=== PATIENT | female | born 1985 | race Caucasian/White ===

== ENCOUNTER 2022-11-28 10:06 | Outpatient (CLI) | payer OTHER, SELFPAY | END 2022-11-28 10:07 | disposition home or self-care (01) | LOC: NFLDREF 11-29 11:21 | PROVIDERS: PCP Family Medicine; Referring Provider Family Medicine; Visit Provider Family Medicine | DX: R10.32 Left lower quadrant pain (principal); G89.29 Other chronic pain; R11.0 Nausea; K59.00 Constipation, unspecified; N32.81 Overactive bladder; F41.9 Anxiety disorder, unspecified; F60.3 Borderline personality disorder; F32.A Depression, unspecified | CPT/HCPCS: 87086 ==

== ENCOUNTER 2022-12-12 11:30 | Outpatient (CLI) | payer OTHER, SELFPAY ==
--- OUTSIDE RECORDS SUMMARY | 2022-12-12 22:09 | XMS_ITS | Continuity of Care Document ---
Author Name Unknown Organization [facility] Address [address] [address] [place] [address] Phone Care Team Providers Care Crusher Setter Name Role Phone Hermelindo Daigle MD Unavailable Unavailabl e Allergies, Adverse Reactions, Alerts Substance Reaction Status Criticality No Known Allergies Active No Inform ation Medications Medication Instructions Dosage Effective Dates (start - stop) Status Comments amoxicillin 500 mg-clarithromycin 500 mg-lansoprazole 30 mg combo pack take one pack by oral route 2 times every day - Active FERROUS SULFATE (unknown strength) take 1 tablet by oral route every day Not Available - Active tramadol 50 mg tablet take 1 - 2 tablet by oral route 4 times every day as needed 50 MG - Active hyoscyamine sulfate 0.125 mg tablet take 1 tablet by oral route every 4 hours as needed 0.125 MG - Active ondansetron HCl 4 mg tablet take 2 tablet by oral route 2 times every day 8 MG - Active Procedures Procedure Date Established Level 4 or 25-39 min 2019 Colonoscopy Flex; W/bx 1/mx Ugi Endo; W/bx 1/mx Level Iv-surg Path Gross/micro 20 Gg; Iga, Igd, Igg, Igm, Ea Ferritin Iron Iron Binding Capacity New Level 4 or 45-59 min Advance Directives Directive Yes / No Effective Date File Name No Information Encounters Encounter Description Practice Location Reason(s) For Visit Diagnoses Date Provider Providers Copied on Encounter [facility], [address] [address], [place], [id number], [place] tel:[phone] [facility] No Information 3 Parker Casarez. [address] [facility], [facility] [address], [place], [id number] , [place]. tel: [phone] Established Level 4 or 25-39 min [facility], [address] [address], [place], [id number], [place] tel:[phone] [facility] GI Symptoms or Concerns (chief complaint) Left lower quadrant painNauseaIron deficiency anemia, unspecified iron deficiency anemia typeH. pylori infectionHistory of colon polyps 0 Tan Jesus. [address] [facility], [facility] [address], [place], [id number] , [place]. tel: [phone] Referring Provider: Referral Self. [facility], [address] [address], [place], [id number], [place] tel:[phone] [facility] No Information 0 Nichelle Duncan. [address] [facility], [facility] [address], [place], [id number] , [place]. tel: [phone] [facility], [address] [address], [place], [id number], [place] tel:[phone] [facility] Anemia, unspecifiedNauseaLe ft lower quadrant painHemorrhoids, unspecified hemorrhoid typePolyp of rectumPolyp of cecumBenign neoplasm of cecumGastritis, unspecified, without bleedingHelicobacte r pylori as the cause of diseases classd elswhrAnemia, unspecifiedGastriti s, unspecified, without bleedingBenign neoplasm of cecum 0 Nichelle Duncan. [address] [facility], [facility] [address], [place], [place], [id number] , [place]. tel: [phone] Referring Provider: Referral Self. [facility], [address] [address], [place], [place], [id number], tel:[phone] [facility] No Information Feb- 0 Tan Jesus. [address] [address], [place], [place], [id number] , . [phone] Referring Provider: Referral Self. New Level 4 or 45-59 min [facility], [address] [address], [facility] [place], [id number], tel:[phone] [facility] GI Symptoms or Concerns (chief complaint) Left lower quadrant abdominal painNauseaAnemia, unspecified type Feb- 0 Tan Jesus. [address] [facility], [facility] [address], [place], [place], [id number] , [place]. [phone] Referring Provider: Angel Pérez MD, [address] [place] [address], [address]. tel:[phone] Family History Family Member Type Diagnosis Age At Onset Father Problem (finding) Alive and well Mother Problem (finding) Alive and well Immunizations Vaccine Date Status Comments Influenza, seasonal, injecta ble, preservative free administered Note: [facility] bi-direct ional interface ; Source: Other Registry Novel [id number], all formulations administered Note: [facility] bi-direct ional interface ; Source: Other Registry tetanus toxoid, reduced diphtheria toxoid, and acellular pertussis vaccine, adsorbed administered Note: [facility] b i-directional interface ; Source: Other Registry Influenza, seasonal, injectable administe red Note: [facility] bi- directional interface ; Source: Other Registry tetanus and diphtheria toxoi ds, adsorbed, preservative free, for adult use (2 Lf of tetanus toxoid and 2 Lf of diphtheria toxoid) administered Note: [facility] bi-direct ional interface ; Source: Other Registry measles, mumps and rubella v irus vaccine administered Note: [facility] bi-direct ional interface ; Source: Other Registry Payers Payer name Insurance type Covered green party ID Authoriza tion(s) No Information Social History Type Description Quantity Date Captured Comments Sex Female Smoking Status No Information Chief Complaint And Reason For Visit No Information Reason For Referral Reason For Referral No Information Plan Of Treatment Date Type Action Status Referral Ordered: H. pylori Stool Ag, EIA Appointment date/timeframe: 06/08/2020 ordered Referral Ordered: Celiac: TTG IgA + Total IgA Appointment date/timeframe: -today ordered Referral Ordered: Ferritin Appointment date/timeframe: -today ordered Referral Ordered: Iron/TIBC Appointment date/timeframe: -today ordered Referral Ordered: EGD Appointment date/timeframe: 03/24/2020 ordered Referral Ordered: Colonoscopy Appointment date/timeframe: 03/24/2020 ordered History Of Present Illness Encounter Date Complaint History Of Prese nt Illness GI Symptoms or Concerns The william ent had been scheduled for a followup virtual visit. This was converted to a telephone visit as the patient had not logged in. The patient is a 35-year-old female with a history of depression and anxiety, previous inpatient psych admission for suicidal ideations, also with a history of opioid abuse and overdose in 2016. She was initially evaluated in February for complaints of left lower abdominal pain, also with complaints of nausea and microcytic anemia.Previous evaluation had included a CT of the abdomen and pelvis, a pelvic ultrasound as well as laboratory testing, which was notable for a hemoglobin of 11.7 with an MCV of 78. The patient does provide a history of heavy periods.She underwent further evaluation of her symptoms with iron studies, B12, and folate. This was consistent with iron deficiency anemia. EGD and colonoscopy were performed last month. The EGD appeared to be normal. Biopsies of the duodenum were normal. Gastric biopsies were positiv GI Symptoms or Concerns The william ent was seen for a scheduled new patient virtual visit.This was for left lower abdominal pain and microcytic anemia, also with complaints of nausea.The patient is a 35-year-old female with history of depression and anxiety, status post recent inpatient psych admission for suicidal ideations, also with a history of opioid abuse and overdose in 2016, seen for evaluation of left lower abdominal pain, also with complaints of nausea and microcytic anemia.She says she has had a left lower quadrant pain intermittently for many years; however, it got significantly worse on February 14, which prompted her to go to the ER. There, she had extensive workup with a CT of the abdomen and pelvis, which revealed nonobstructive calculi in both kidneys. A pelvic ultrasound was performed and was normal. Labs were notable for normal LFTs, normal BMP, negative CRP, negative hCG. Her hemoglobin was a little low at 11.7 with an MCV of 78.She denies any blood in the stool. She Functional Status Date Functional Assessmen t No Information Instructions Date Instruction Additional Infor roni 1. complete course o f treatment for h. pylori2. check h. pylori stool antigen 1 month after completing treatment to confirm successful treatment3. f/u with pcp, service line coordinator regarding anemia and left lower pain4. can consider further eval of anemia with small bowel pillcam if does not improve/is not felt due to heavy periods5. consider gastric emptying test for further eval of nausea if does not improve with treatment of h. pylori6. repeat colonoscopy in 5 years for polyp surveillance7. continue otc hemorrhoidal treatments, fiber for hemorrhoids - if remain bothersome recommend follow up with colorectal surgery7. f/u as needed Related to History of colon polyps Colon Cancer Prevention Related to Hemorrhoids, unspecified hemorrhoid type Colon Polyps Related to Hemor rhoids, unspecified hemorrhoid type Hemorrhoids Related to Hemor rhoids, unspecified hemorrhoid type High Fiber Diet Related to Hemor rhoids, unspecified hemorrhoid type 1. EGD with gastric and duodenal biopsies2. colonoscopy3. iron studies, celiac labs4. f/u after tests - consider daily ppi, gastric emptying test for nausea, consideration of musculoskeletal cause for pain Related to Anemia, unspecified type Assessments Type Assessment Date No Information Patient Care Teams Name Effective Dates (start - stop) Status Members No Information
== END 2022-12-12 11:31 | disposition home or self-care (01) ==
LOC: NFLDREF 22:07
PROVIDERS: PCP Family Medicine; Referring Provider Family Medicine; Visit Provider Nurse Practitioner Family
DX: E55.9 Vitamin D deficiency, unspecified (principal); D64.9 Anemia, unspecified; F41.9 Anxiety disorder, unspecified; Z79.899 Other long term (current) drug therapy; F32.A Depression, unspecified
CPT/HCPCS: 80076; 82306; 84443

== ENCOUNTER 2023-01-09 07:50 | Day surgery (SDC) | payer OTHER, SELFPAY ==
[2023-01-09] VITALS (18 sets, daily range): BP systolic 99–130; BP diastolic 62–84; PULSE 47–72; RESP 14–20; TEMP 35.8–36.5; O2SAT 84–100; BMI 36.5
[2023-01-09 08:19] LABS: Ur HCG Qualitative* Negative (Negative)
[2023-01-09] MEDS: LACTATED RINGERS 1000 ML 1,000 ML 100 ML IV (08:34)
[2023-01-09 08:35] LABS: Hemoglobin* 9.7 gm/dL (12.0-16.0)
[2023-01-09] MEDS: SODIUM CHLORIDE 0.9 % (FLUSH) 10 ML SYRINGE IVF (08:35)
--- NOTE | 2023-01-09 08:44 | W.PM.H&PU ---
History & Physical Update History & Physical Update H&P Reviewed and patient assessed: The following changes are noted below H&P Updates: The patient has been taking Tramadol in the last week to treat chronic LLQ pain. She has chronic constipation.
--- NOTE | 2023-01-09 08:46 | PM.PROC ---
Procedure Note Time Seen by Provider: 11:54 Date Seen: 01/09/23 Date of procedure: 01/09/23 Will [facility] bill your pro fee for this procedure?: Yes Procedure: Preoperative diagnosis: 37-year-old with chronic LLQ pain Filshie Clip from a tubal ligation noted in the L abdomen on xray. Undesired fertility Postoperative diagnosis: Same. Extensive adhesions of the descending colon and sigmoid colon to the left abdominal and pelvic sidewall and overlying small bowel. Procedure: Laparoscopic bilateral salpingectomy, Laparoscopic removal of a Filshie clip, extensive lysis of adhesions. Anesthesia: General endotracheal, Local Surgeon: Chaisty Francois MD Medical Receptionist Assistant: Shahana Ortiz MD EBL: 10 mL Urine output: 400 mL clear urine IV Fluid: 1000 ml LR Specimen: Bilateral fallopian tubes to pathology. Findings: On exam under anesthesia: The uterus was anteverted, 8 week size, mobile, without masses or nodularity palpable. Adnexa were without mass or fullness bilaterally. The uterus sounded to 9 cm. On laparoscopy: The uterus and ovaries appear normal. Fallopian tubes show evidence of previous tubal ligation: The tubes showed scarring in the middle of the tube with the area where the Filshie clips had been on the tubes were disconnected. Neither Filshie clip was on either fallopian tube. One Filshie clip was in the pelvis and was removed. There was extensive adhesions the descending and sigmoid colon to the left abdominal sidewall and left pelvic sidewall. No evidence of endometriosis. Adhesions suggestive of history of diverticulitis or colitis. An intraoperative abdominal x-ray was performed to identify where the 2nd Filshie clip was. It was noted to be on the left side of the abdomen approximately level with the umbilicus. This was in an area where the descending colon was adherent to some overlying small bowel and adherent to the left sidewall and these adhesions could not be safely taken down without concern for injury to the colon or blood vessels. So the 2nd Filshie clip was not identified or removed surgically. There were also omental adhesions to the anterior abdomen at the level of the tubal ligation incision. I am suspicious that her chronic pain is secondary to colonic adhesions /diverticulitis/colitis. No gynecologic etiology for her pain was identified. Procedure: Shahana was taken to the operating room where general anesthetic was found to be adequate. She was placed in the dorsal lithotomy position and an exam under anesthesia was performed with findings stated above. She was then prepped and draped in a normal sterile manner. A Araya catheter was then placed. A bivalve speculum was then placed in the vaginal canal to visualize the cervix. The anterior lip of the cervix was grasped with an a long Allis clamp. The cervix was dilated to Hegar 6. Uterus was sounded to Nine cm. A Rami uterine manipulator was then placed. Attention was then turned to performing the laparoscopic portion of the procedure. All incisions were injected with 0.5% Marcaine prior to incision. A vertical 5 mm infraumbilical, incision, was made and a 5 mm trocar placed under direct visualization with the laparoscope. The abdomen was then insufflated with carbon dioxide gas to a pressure of 15 mm of mercury. To bilateral lower quadrant trocars were then placed under direct visualization. Both were placed approximately 3-4 finger breaths medial to the ischial crests. The right trocar was 5 mm the left trocar was 11 mm. A diagnostic laparoscopy was then performed with findings stated above. The left fallopian tube was grasped with a sliding grasper. The left fallopian tube was removed from the broad ligament using the Halo dissecting forceps starting at the fimbriated end of the tube. Sequential pedicles were then formed to the level of the cornua. The tube was then removed at the cornua and removed from the abdomen through the 11 mm port. The right fallopian tube was removed in a similar manner. Excellent hemostasis was noted of all pedicles. The trocars were then removed under direct visualization. The CO2 gas was allowed to escape the infraumbilical port prior to its removal. a Filshie clip was noted to be in the left side of the pelvic cul-de-sac and was removed. The next 45 minutes were used to perform an extensive lysis of adhesions attempting to mobilize the descending and sigmoid colon from the left abdominal sidewall and left pelvis in an attempt to identify and remove the 2nd Filshie clip. As stated above, an x-ray identified the Filshie clip to be on the left side of the abdomen at the level of the umbilicus with in scarring of the colon to the overlying small bowel and abdominal sidewall. Because these adhesions could not be taken down safely the decision was made to complete the surgery. All incisions were reapproximated using 4-0 Monocryl in a running subcuticular manner. Exofin skin adhesive was then applied and adhesive dressings applied over each incision. The uterine manipulator and Araya catheter were removed. The patient tolerated this procedure well. Sponge, lap and instrument counts were correct x2 at the end of the procedure and the patient was taken to the recovery area in stable condition. Total surgical time: 1 hour, 26 minutes. Lysis of adhesions: 45 minutes. Anesthesia: GETA and local Medical Receptionist Assistant: Shahana Ortiz Estimated blood loss (mL): 10 IV fluids (mL): 1,000 Urine output (mL): 400 Pathology: specimen obtained, sent to pathology Condition: stable Disposition: PACU
--- NOTE | 2023-01-09 08:52 | W.ANESCHARGE ---
Anesthesia Charges Start Date/Time Anesthesia Start Date: 01/09/23 Anesthesia Start Time: 07:30 Stop Date/Time Anesthesia Stop Date: 01/09/23
--- NOTE | 2023-01-09 09:18 | W.ANESCHARGE ---
Anesthesia Charges Start Date/Time Anesthesia Start Date: 01/09/23 Anesthesia Start Time: 09:30 Stop Date/Time Anesthesia Stop Date: 01/09/23 Anesthesia Stop Time: 11:42
[2023-01-09] MEDS: BUPIVACAINE 0.5% 30 ML INJECTION (10:10)
--- NOTE | 2023-01-09 10:40 | CRLHL7_ITS ---
For Patients: As a result of the Cures Act, medical imaging exams and procedure reports are released immediately into your electronic medical record. You may view this report before your referring provider. If you have questions, please contact your health care provider. Indication: Intra op - missing instrument Technique: Abdomen 1 view. Comparison: 10/24/2022 Findings: Intraoperative localization left pelvic clip. Impression: Left pelvic clip noted. This was noted by the surgeons in the OR. Dictated by Jason Malone MD @ 01/09/2023 11:18:23 AM (Electronically Signed)
[2023-01-09] MEDS: LACTATED RINGERS 1000 ML 1,000 ML 50 ML IV (11:40)
--- NOTE | 2023-01-09 11:44 | W.ANESCHARGE ---
Anesthesia Charges Start Date/Time Anesthesia Start Date: 01/09/23 Anesthesia Start Time: 09:30 Stop Date/Time Anesthesia Stop Date: 01/09/23 Anesthesia Stop Time: 11:42
[2023-01-09] MEDS: MEPERIDINE 25 MG/ML INJ 12.5 MG IVP (11:53)
[2023-01-09] MEDS: HYDROmorphone 0.5 mg/0.5 ml inj IVP (12:01)
--- NOTE | 2023-01-09 12:25 | P.GYNPRC_ITS ---
Procedure Note Date of procedure: 01/09/23 Procedure Description: PREOPERATIVE DIAGNOSIS: 37-year-old with * chronic LLQ pain * Filshie Clip from a tubal ligation noted in the L abdomen on xray. * Undesired fertility POSTOPERATIVE DIAGNOSIS: Same. Extensive adhesions of the descending colon and sigmoid colon to the left abdominal and pelvic sidewall and overlying small bowel. PROCEDURE: Laparoscopic bilateral salpingectomy, Laparoscopic removal of a Filshie clip, extensive lysis of adhesions. SURGEON: Alessandro. MAINTENANCE TECHNICIAN 3RD SHIFT: Angel. ANESTHESIA: General endotracheal. COMPLICATIONS: None. ESTIMATED BLOOD LOSS: See operative report by Dr. Francois. FINDINGS: See operative report by Dr. Francois. PROCEDURE NOTE: Please see the operative report by Dr. Bradley Gallegos for full details of the procedure. I was asked to assist. I was scrubbed in for the entire procedure until closure of the abdominal incisions. I provided assistance with laparoscopic port placement, lysis of adhesions, visualization and retraction, and with the bilateral salpingectomies from the right side.
[2023-01-09] MEDS: fentaNYL 100 MCG/2 ML inj 50 MCG IVP (12:39)
[2023-01-09] MEDS: ACETAMINOPHEN 500 MG TABLET 1000 MG PO (12:40)
[2023-01-09] MEDS: OXYCODONE 5 MG TABLET PO ×2 (12:40→15:05)
--- NOTE | 2023-01-09 15:12 | SUR.PHASEII ---
pt up to bathroom. Rates pain 7/10 see FLACC scale.
== END 2023-01-09 15:13 | disposition home or self-care (01) ==
PROVIDERS: PCP Family Medicine; Visit Provider Obstetrics & Gynecology
PROC: (CPT 49320; principal; 2023-01-09 08:45)
PROC: (CPT 58661; 2023-01-09 08:45)
DX: Z30.2 Encounter for sterilization (principal); R10.32 Left lower quadrant pain; T83.428A Displacement of other prosthetic devices, implants and grafts of genital tract, initial encounter; K66.0 Peritoneal adhesions (postprocedural) (postinfection)
CPT/HCPCS: 58661; 49329; 00851; 36415; 74018; 81025; 85018; 88302; A9270; J0330; J0665; J1100; J1170; J1885; J2175; J2250; J2405; J2704; J2710; J3010; J7120

== ENCOUNTER 2023-01-18 20:30 | Emergency (ER) | payer OTHER, SELFPAY ==
[2023-01-18 20:49] VITALS: BP 122/78; PULSE 100; RESP 16; TEMP 36.4; O2SAT 100; BMI 36.2
--- NOTE | 2023-01-18 21:16 | CRLHL7_ITS ---
For Patients: As a result of the Century Cures Act, medical imaging exams and procedure reports are released immediately into your electronic medical record. You may view this report before your referring provider. If you have questions, please contact your health care provider. INDICATION: Left lower quadrant pain status post hysterectomy 1-1/2 weeks ago. COMPARISON: Plain film of the abdomen from 01/09/2023. CT of the abdomen and pelvis with contrast from 12/30/2020. TECHNIQUE: CT examination of the abdomen and pelvis was performed with the uneventful intravenous administration of 98 cc of Isovue 370 while 3 mm thick axial sections were obtained from the lung bases through the pubic symphysis. Oral contrast was not administered. Please note that all CT scans at this facility use dose modulation, iterative reconstruction, and/or weight-based dosing when appropriate to reduce radiation dose to as low as reasonably achievable. FINDINGS: In the abdomen, the liver, spleen, pancreas, and adrenals are normal in appearance. The kidneys are normal in appearance. The gallbladder is normal in appearance. The abdominal aorta is normal in caliber with no sign of dilatation. There is no sign of retroperitoneal mass or adenopathy. The stomach, loops of small bowel, and colon in the abdomen are normal in appearance. The moderate-sized right inferior periumbilical hernia containing only fat has slightly increased in size. In the pelvis, the appendix is normal in appearance with no sign of inflammatory process. The loops of small bowel, colon, and rectum in the pelvis are normal in appearance. The uterus is still present, despite the history of hysterectomy. It is mildly enlarged, measuring 9.2 x 6.4 x 6.8 centimeters. There is no sign of any mass. The right ovary has a peripherally enhancing slightly irregular cyst measuring 2.3 x 1.4 centimeters, probably an involuting dominant follicular cyst. The left ovary is normal in appearance. The urinary bladder is normal in appearance. There is no sign of pelvic or inguinal mass or adenopathy. There is no sign of free air or free fluid in the abdomen or pelvis. The lung bases are clear. The osseous structures are normal in appearance for the patient`s age. IMPRESSION: Nothing seen to explain the patient`s left-sided pain. No sign of left urinary system obstruction or calculus. No sign of diverticulosis or diverticulitis. Normal appearance of the left ovary. CT of the pelvis shows mild enlargement of the otherwise normal-appearing uterus. This does not correlate with the clinical history of hysterectomy. Collapsing dominant follicular cyst in the right ovary measuring 2.3 x 1.4 centimeters. Normal appearance of the left ovary. Slight increase in size of moderate-sized right inferior periumbilical hernia. Normal CT of the abdomen with contrast. Please note that all CT scans at this facility use dose modulation, iterative reconstruction, and/or weight-based dosing when appropriate to reduce radiation dose to as low as reasonably achievable. Dictated by Gunner Arambula MD @ 01/18/2023 11:40:14 PM (Electronically Signed)
--- NOTE | 2023-01-18 21:17 | ED_ITS ---
<Statement entered by Oly Rubalcava MD - 09/04/23 08:06> This documentation has been reviewed and approved. HPI - Abdominal Pain General Chief Complaint: Abdominal Pain Stated Complaint: abdominal pain Time Seen by Provider: 01/18/23 20:58 History of Present Illness HPI narrative: This 37-year-old female comes in reporting pain in her left lower quadrant. She did have a hysterectomy done a week and half ago. This pain is come up in the past few days and is rather constant. She does take tramadol over a long period of time and understands that this causes constipation. She did quit this medicine earlier this week and has had better bowel movements now but complains of pain. She does have a history of abdominal pain and was hoping that this hysterectomy would relieve her symptoms but that has not happened. She does describe similar pain a couple years ago where she had studies done in was given 2 antibiotics twice a day for a week or so to treat an infection. I asked her if it was diverticulitis and she thought it might have been that but she was not sure. She does not report any fevers or blood in the toilet. She does have nausea symptoms. She states that the pain was worse with going over the little bumps on the way here. Related Data Home Medications Medication Instructions Recorded Confirmed guar gum 1 gram tablet g PO PRN 05/03/23 06/05/23 Previous Rx's Medication Instructions Recorded simethicone 125 mg capsule (Gas 125 mg PO TID-QID PRN abdominal 01/17/23 Relief (simethicone)) distention #60 caps iron,carbonyl 65 mg-vitamin C 125 1 tab PO BID #180 tabs 03/02/23 mg tablet,delayed release (Vitron-C) pantoprazole 20 mg tablet,delayed 20 mg PO DAILY #90 tabs 04/12/23 release (Protonix) tramadol 50 mg tablet 50 mg PO BID PRN pain #30 tabs 04/12/23 tolterodine 2 mg capsule,extended 2 mg PO Q24H #90 caps 05/03/23 release 24 hr (Detrol LA) prednisone 20 mg tablet 40 mg (2 x 20 mg) PO QDAY #10 tabs 06/05/23 Allergies Allergy/AdvReac Type Severity Reaction Status Date / Time No Known Drug Allergies Allergy Verified 12/19/23 12:19 Review of Systems Status of ROS Reports: 10 or more systems reviewed and unremarkable except as noted in History and below Narrative Constitutional: No fevers, no weight gain or loss. Eyes: No discharge. No vision changes. HENT: No congestion, no sore throat, no ear pain. Cardiovascular: No chest pain, no palpitations. Respiratory: No shortness of breath, no wheezes, no cough. Abdominal pain as described above. Gastrointestinal: No vomiting, no diarrhea. Genitourinary: No dysuria, no hematuria. Musculoskeletal: Normal range of motion. Skin: No rashes, no pruritis. Neurological: No dizziness, weakness, sensory change, speech change. Endo/Heme/Allergies: No bruising or bleeding. No polydipsia. Pysch: no suicidality, no anxiety, no insomnia. All other systems reviewed and are negative. [facility] Medical History (Updated 06/05/23 @ 12:50 by Sofia Godfrey MD) Sinus congestion ?R09.81 - Nasal congestion (ICD-10) Anemia ?D64.9 - Anemia, unspecified (ICD-10) Post-traumatic stress ?F43.10 - Post-traumatic stress disorder, unspecified (ICD-10) History of intentional self-harm Passive suicidal ideations ?R45.851 - Suicidal ideations (ICD-10) Vitamin D deficiency ?E55.9 - Vitamin D deficiency, unspecified (ICD-10) Medication management ?Z79.899 - Other tank terminal gauger (current) drug therapy (ICD-10) Chronic left lower quadrant pain ?R10.32 - Left lower quadrant pain (ICD-10) ?G89.29 - Other chronic pain (ICD-10) Adverse effect of vaccine ?T50.Z95A - Adverse effect of other vaccines and biological substances, initial encounter (ICD-10) H/O gestational diabetes mellitus, not currently ?Z86.32 - Personal history of gestational diabetes (ICD-10) Vaginal delivery ?O80 - Encounter for full-term uncomplicated delivery (ICD-10) Labyrinthitis ?H83.09 - Labyrinthitis, unspecified ear (ICD-10) History of suicide attempt (2017) ?Z91.51 - Personal history of suicidal behavior (ICD-10) Surgical History (Updated 01/09/23 @ 08:56 by Chasity Francois MD) History of bilateral ligation of fallopian tubes ?Z98.51 - Tubal ligation status (ICD-10) Family History (Updated 11/01/22 @ 16:24 by Chasity Francois MD) Maternal Grandmother Cardiovascular disease Diabetes Mother Diabetes Social History (Updated 11/01/22 @ 16:25 by Chasity Francois MD) Narrative: Cis-gender, heterosexual woman Relationship status: . 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 Illicit/recreational drugs: No Safety concerns at home or work: No Dietary restriction(s): No Exercise: No. Smoking Status: Never smoker How often do you have a drink containing alcohol: never AUDIT-C Alcohol total score: 0 Non-prescribed substance use: denies use Caffeine: Yes (1 cup coffee) Little interest or pleasure in doing things: nearly every day Feeling down, depressed, or hopeless: more than half the days Are you using contraception or practicing any form of control: No Exam Narrative: Exam Narrative: Constitutional: Well-developed, well-nourished, no acute distress. HEENT: Normocephalic, atraumatic. Neck: Normal range of motion. Nontender. Supple. Heart: Regular. No murmurs. Normal rate. Intact distal pulses. Lungs: Clear to auscultation. No chest discomfort. No wheezes, rhonchi, or rales. Abdomen: Normal bowel sounds. Tenderness in the left lower quadrant. Mild rebound tenderness is present. Genitalia: Deferred. Back: No midline tenderness. Normal range of motion. Extremities: Normal range of motion. No injury. Skin: Intact. No rash. Warm. No erythema or pallor. Neurologic: No altered sensation. No weakness. Alert and oriented. Psychiatric: No suicidality. No anxiety or depression. No insomnia. Nursing notes and vitals signs are reviewed. Const: Vital Signs, click to edit/add: Vital Signs - 24 hr 01/18/23 20:49 01/18/23 22:18 01/18/23 22:19 Temperature 97.6 F Pulse Rate 63 Pulse Rate [Left P ulse Oximeter] 100 61 Respiratory Rate 16 16 Blood Pressure 136/85 Blood Pressure [Le ft Upper Arm] 122/78 138/85 Pulse Oximetry 100 100 100 Oxygen Delivery Me thod Room Air Room Air 01/18/23 22:32 01/18/23 23:03 Temperature Pulse Rate 54 L 55 L Pulse Rate [Left P ulse Oximeter] Respiratory Rate 16 Blood Pressure 115/75 107/64 Blood Pressure [Le ft Upper Arm] Pulse Oximetry 100 100 Oxygen Delivery Me thod Course Vital Signs Vital signs: Initial Vital Signs Temperature 97.6 F 01/18/23 20:49 Temperature Source Temporal Artery Scan 01/18/23 20:49 Pulse Rate 100 01/18/23 20:49 Respiratory Rate 16 01/18/23 20:49 Blood Pressure 122/78 01/18/23 20:49 Blood Pressure Mean 92 01/18/23 20:49 Blood Pressure Position Sitting 01/18/23 20:49 Pulse Oximetry 100 01/18/23 20:49 Oxygen Delivery Method Room Air 01/18/23 20:49 Vital Signs Temperature 97.6 F 01/18/23 20:49 Pulse Rate 100 01/18/23 20:49 Respiratory Rate 16 01/18/23 20:49 Blood Pressure 122/78 01/18/23 20:49 Pulse Oximetry 100 01/18/23 20:49 Oxygen Delivery Method Room Air 01/18/23 20:49 Temperature 97.6 F 01/18/23 20:49 Pulse Rate 57 L 01/18/23 23:32 Respiratory Rate 16 01/18/23 23:03 Blood Pressure 110/61 01/18/23 23:32 Pulse Oximetry 99 01/18/23 23:32 Oxygen Delivery Method Room Air 01/18/23 22:18 MDM - Abdominal Pain MDM Narrative Medical decision making narrative: This patient comes in reporting abdominal pain mostly on the left side. She does arrive with normal vital signs. An IV was established and CT imaging of the abdomen and pelvis is acquired. The patient did not have a hysterectomy but rather a salpingectomy and a surgical clip was removed. There was also evidence of adhesions in the surgical report. This most likely explains the patient's pain as the rest of the CT scan is not showing a cause for her pain. She does have a hernia that is slightly enlarged but is not complicated. The patient did receive an IV dose of Dilaudid 0.5 mg and she states that her pain seemed worse after getting this medicine. She then received Toradol 30 mg and that brought sufficient relief of her symptoms. She is okay to be discharged home and received prescriptions for Toradol, Zofran, and Protonix. Lab Data Labs: Lab Results 01/18/23 Range/Units 21:30 WBC 10.89 (4.50-11.00) K/uL RBC 4.66 (4.00-5.20) m/uL Hgb 10.6 L (12.0-16.0) gm/dL Hct 34.8 (33.0-51.0) % MCV 75 L (80-100) fL MCH 23 L (26-34) pg MCHC 31 L (32-36) gm/dL RDW Coeff of Michelle 15.3 (11.5-15.5) % Plt Count 434 (140-440) K/uL Neut % (Auto) 60.0 (42.0-72.0) % Lymph % (Auto) 30.9 (20-44) % Terrell % (Auto) 5.7 (0.0-11.0) % Eos % (Auto) 2.7 (0.0-7.0) % Baso % (Auto) 0.5 (0.0-3.0) % Neut # (Auto) 6.54 (1.7-7.0) K/uL Lymph # (Auto) 3.37 H (0.90-2.90) K/uL Terrell # (Auto) 0.60 (0.00-0.90) K/UL Eos # (Auto) 0.29 (0.00-0.50) K/uL Baso # (Auto) 0.05 (0.00-0.30) K/uL Abs Immat Gran (auto) 0.02 (0.00-0.30) K/uL Imm/Tot Granulo (auto) 0.2 % Sodium 139 (135-149) mmol/L Potassium 3.9 (3.6-5.1) mmol/L Chloride 107 (96-114) mmol/L Carbon Dioxide 25 (20-32) mmol/L BUN 20 (5-24) mg/dL Creatinine 0.7 (0.5-1.5) mg/dL Estimated Creat Clear 85.34 Estimated GFR 113 ml/min Glucose 100 (60-115) mg/dL Calcium 9.3 (8.4-10.6) mg/dL Imaging Data CT scan - abdomen: Radiologist's impression: Nothing seen to explain the patient`s left-sided pain. No sign of left urinary system obstruction or calculus. No sign of diverticulosis or diverticulitis. Normal appearance of the left ovary. CT of the pelvis shows mild enlargement of the otherwise normal-appearing uterus. This does not correlate with the clinical history of hysterectomy. Collapsing dominant follicular cyst in the right ovary measuring 2.3 x 1.4 centimeters. Normal appearance of the left ovary. Slight increase in size of moderate-sized right inferior periumbilical hernia. Normal CT of the abdomen with contrast. Discharge Plan Discharge Clinical Impression: Abdominal pain Patient Disposition: Home, Self-Care Condition: Stable Additional Instructions: Take medications as needed and indicated. Follow up with MD or return if worsening. Prescriptions: No Action Vitron-C 65 mg iron- 125 mg tablet,delayed release (DR/EC) 1 tab PO BID Qty: 180 1RF pantoprazole [Protonix] 20 mg tablet,delayed release (DR/EC) 20 mg PO DAILY Qty: 90 1RF tramadol 50 mg tablet 50 mg PO BID PRN (Reason: pain) Qty: 30 1RF guar gum 1 gram tablet PO PRN tolterodine [Detrol LA] 2 mg capsule,extended release 24hr 2 mg PO Q24H Qty: 90 3RF simethicone [Gas Relief (simethicone)] 125 mg capsule 125 mg PO TID-QID PRN (Reason: abdominal distention) Qty: 60 0RF prednisone 20 mg tablet 40 mg PO QDAY Qty: 10 0RF Follow Up/Referrals: Angel Pérez MD [Primary Care Provider] - Stand Alone Forms: [employer] Info Instructions
[2023-01-18 21:38] LABS: Basophils Absolute Auto 0.05 K/uL (0.00-0.30); Basophils Percent Auto 0.5 % (0.0-3.0); Eosinophils Absolute Auto 0.29 K/uL (0.00-0.50); Eosinophils Percent Auto 2.7 % (0.0-7.0); Hematocrit 34.8 % (33.0-51.0); Hemoglobin* 10.6 gm/dL (12.0-16.0); Immature Granulocytes Abs Auto 0.02 K/uL (0.00-0.30); Immature Granulocytes Pct Auto 0.2 %; Lymphocytes Absolute Auto 3.37 K/uL (0.90-2.90); Lymphocytes Percent Auto 30.9 % (20-44); Mean Corpuscular HGB Conc 31 gm/dL (32-36); Mean Corpuscular Hemoglobin 23 pg (26-34); Mean Corpuscular Volume 75 fL (80-100); Monocytes Percent Auto 5.7 % (0.0-11.0); Neutrophils Absolute Auto 6.54 K/uL (1.7-7.0); Platelet Count* 434 K/uL (140-440); RDW Coefficient of Variation % 15.3 % (11.5-15.5); Red Blood Count 4.66 m/uL (4.00-5.20); White Blood Count* 10.89 K/uL (4.50-11.00)
[2023-01-18] MEDS: HYDROmorphone 0.5 mg/0.5 ml inj IVP (21:38)
[2023-01-18] MEDS: ONDANSETRON 2 MG/ML inj 4 MG IVP (21:38)
[2023-01-18] MEDS: 0.9 % SODIUM CHLORIDE 500 ML 500 ML IV (21:49)
[2023-01-18 21:54] LABS: Slide Review Reflex No
[2023-01-18 21:56] LABS: Chloride* 107 mmol/L (96-114); Potassium* 3.9 mmol/L (3.6-5.1); Sodium* 139 mmol/L (135-149)
[2023-01-18 21:58] LABS: Creatinine* 0.7 mg/dL (0.5-1.5)
[2023-01-18] MEDS: KETOROLAC 30 MG/ML inj IVP (21:58)
[2023-01-18 21:59] LABS: Blood Urea Nitrogen* 20 mg/dL (5-24); Calcium* 9.3 mg/dL (8.4-10.6); Carbon Dioxide* 25 mmol/L (20-32); Est. Creatinine Clearance* 85.34; Estimated Glomerular Filt Rate 113 ml/min; Glucose* 100 mg/dL (60-115)
[2023-01-18 22:18] VITALS: BP 138/85; PULSE 61; RESP 16; O2SAT 100
[2023-01-18 22:19] VITALS: BP 136/85; PULSE 63; O2SAT 100
[2023-01-18 22:32] VITALS: BP 115/75; PULSE 54; O2SAT 100
[2023-01-18 23:03] VITALS: BP 107/64; PULSE 55; RESP 16; O2SAT 100
[2023-01-18 23:32] VITALS: BP 110/61; PULSE 57; O2SAT 99
== END 2023-01-19 00:11 | disposition home or self-care (01) ==
PROVIDERS: Emergency Provider Emergency Medicine Emergency Medical Services; PCP Family Medicine
DX: R10.9 Unspecified abdominal pain (principal)
CPT/HCPCS: 36415; 74177; 80048; 85025; 95992; 96374; 96375; 99281; 99284; 99285; J1170; J1885; J2405; J7120; Q9967

== ENCOUNTER 2023-03-02 09:52 | Outpatient (CLI) | payer OTHER, SELFPAY | END 2023-03-02 09:53 | disposition home or self-care (01) | PROVIDERS: PCP Family Medicine; Visit Provider Family Medicine | DX: R10.32 Left lower quadrant pain (principal); D64.9 Anemia, unspecified; R11.0 Nausea; R42 Dizziness and giddiness; G89.29 Other chronic pain | CPT/HCPCS: 82306; 82607; 82728; 83540 ==

== ENCOUNTER 2023-04-12 09:32 | Outpatient (CLI) | payer OTHER, SELFPAY | END 2023-04-12 09:33 | disposition home or self-care (01) | PROVIDERS: PCP Family Medicine; Visit Provider Family Medicine | DX: D64.9 Anemia, unspecified (principal) | CPT/HCPCS: 82728; 83540; 85045 ==

== ENCOUNTER 2024-03-13 16:20 | Outpatient (CLI) | payer OTHER, SELFPAY ==
--- OUTSIDE RECORDS SUMMARY | 2024-03-13 16:27 | XMS_ITS | Referral Summary ---
Author Organization [place] Address [address] [facility] [place] [address] Care Team Providers Care Lastex Operator Name Role Phone Angel Pérez MD Primary Care Provider [phone] Allergies No known active allergies Medications Medication Sig Dispensed Refills Start Date End Date Status MELATONIN POIndications:Insom laura Take 5-10 mg by mouth nightly as needed Active hypromellose (ARTIFICIAL TEARS) 0.5 % SOLN ophthalmic solution Place 1 drop into both eyes 4 times daily as needed for dry eyes Active acetaminophen (TYLENOL) 325 MG tabletIndications:C hronic midline low back pain without sciatica Take 2 tablets (650 mg) by mouth every 4 hours as needed for mild pain 30 tablet 1 04/27/2017 Active Additional Information Patient not taking.Reported on 04/29/2022 hydrOXYzine (ATARAX) 25 MG tabletIndications:R ecurrent major depressive disorder, in partial remission (H24),Borderline personality disorder Take 2 tablets (50 mg) by mouth every 4 hours as needed for anxiety 90 tablet 1 04/27/2017 Active Additional Information Patient not taking.Reported on 04/29/2022 divalproex (DEPAKOTE) 500 MG EC tabletIndications:m ood stabilizer Take 1 tablet (500 mg) by mouth 2 times daily 60 tablet 1 04/27/2017 Active Additional Information Patient not taking.Reported on 04/29/2022 gabapentin (NEURONTIN) 800 MG tabletIndications:B orderline personality disorder,Recurrent major depressive disorder, in partial remission (H24),ABRAHAM (generalized anxiety disorder) Take 1 tablet (800 mg) by mouth 3 times daily 90 tablet 1 04/27/2017 Active Additional Information Patient not taking.Reported on 04/29/2022 FLUoxetine (PROZAC) 20 MG capsuleIndications: Borderline personality disorder,ABRAHAM (generalized anxiety disorder),Recurrent major depressive disorder, in partial remission (H24) Take 3 capsules (60 mg) by mouth daily 90 capsule 1 04/27/2017 Active Additional Information Patient not taking.Reported on 04/29/2022 LORazepam (ATIVAN) 0.5 MG tablet Take 1 tablet (0.5 mg) by mouth every 6 hours as needed for anxiety 2 tablet 09/20/2022 Active Active Problems Problem Noted Date Diagnosed Date Borderline personality disorder 04/27/2017 Recurrent major depressive d isorder, in partial remission (H24) 04/27/2017 Chronic midline low back pain without sciatica 1 06/27/2016 ABRAHAM (generalized anxiety disorder) 04/27/2017 Unspecified mood (affective) disorder (H24) 11/2016 Overview: Traits of rapid cycling bipolar disorder, however equivocal at this time Opiate dependence 04/23/2017 Overview: Uses Tramadol Suicide attempt 04/22/2017 MENTAL HEALTH 10/26/2016 Social History Tobacco Use Types Packs/Day Years Used Date Smoking Tobacco: Never Smokeless Tobacco: Never Tobacco Cessation:Counseling Given: Not Answered Alcohol Use Standard Drinks/Week Comments Yes 0 (1 standard drink = 0.6 oz pur e alcohol) Adolescent Education Answer Date Record ed Getting School Help Needed Not on file 04/01 Sex and Gender Information Value Date Recorded Sex Assigned at Not on file Gender Identity Not on file Sexual Orientation Not on file Last Filed Vital Signs Vital Sign Reading Time Taken Comments Blood Pressure 138/80 09/20/2022 12:30 AM CDT Pulse 82 09/20/2022 12:30 AM CDT Temperature 36.9 ??C (98.5 ??F) 09/20/2022 12:30 AM C DT Respiratory Rate 20 09/20/2022 12:30 AM CDT Oxygen Saturation 100% 09/20/2022 12:30 AM CDT Inhaled Oxygen Concentration - - Weight 103.4 kg (228 lb) 04/29/2022 1:16 PM AIR TUCKER Height 157.5 cm (5' 2) 04/22/2017 7:38 PM AIR TUCKER Body Mass Index 41.7 04/22/2017 7:38 PM AIR TUCKER Plan of Treatment Not on file Procedures Procedure Name Priority Date/Time Associated Diagnosis Comments COMPREHENSIVE METABOLIC PANEL STAT 09/20/2022 2:11 AM CDT LIPID PROFILE Routine 10/27/2016 8:44 AM CDT from Last 3 Months or Most Recently Relevant to Health Maintenance Results * (ABNORMAL) Comprehensive metabolic panel (09/20/2022 2:11 AM CDT) Sodium 138 136 - 145 mmol/L 09/20/2022 3:01 AM CDT [facility] Potassium 3.7 3.4 - 5.3 mmol/L 09/20/2022 3:01 AM CDT [facility] Chloride 103 98 - 107 mmol/L 09/20/2022 3:01 AM CDT [facility] Carbon Dioxide (CO2) 23 22 - 29 mmol/L 09/20/2022 3:01 AM CDT [facility] Anion Gap 12 7 - 15 mmol/L 09/20/2022 3:01 AM CDT [facility] Urea Nitrogen 10.1 6.0 - 20.0 mg/dL 09/20/2022 3:01 AM CDT [facility] Creatinine 0.56 0.51 - 0.95 mg/dL 09/20/2022 3:01 AM CDT [facility] Calcium 8.9 8.6 - 10.0 mg/dL 09/20/2022 3:01 AM CDT LABORATORY Glucose 101(H) 70 - 99 mg/dL 09/20/2022 3:01 AM CDT [facility] Alkaline Phosphatase 80 35 - 104 U/L 09/20/2022 3:01 AM CDT [facility] AST 26 10 - 35 U/L 09/20/2022 3:01 AM CDT [facility] ALT 32 10 - 35 U/L 09/20/2022 3:01 AM CDT [facility] Protein Total 7.0 6.4 - 8.3 g/dL 09/20/2022 3:01 AM CDT [facility] Albumin 4.3 3.5 - 5.2 g/dL 09/20/2022 3:01 AM CDT [facility] Bilirubin Total <0.2 <=1.2 mg/dL 09/20/2022 3:01 AM CDT [facility] GFR Estimate >90 >60 mL/min/1.7 3m2 09/20/2022 3:01 AM CDT [facility] Comment:eGFR calculated us2020 CKD-EPI equation. Blood BLOOD SPECIMEN / Unknown Venipuncture / Unknown 09/20/2022 2:11 AM CDT 09/20/2022 2:17 AM CDT Zurdo Horton MD LAB - BLO OD ORDERABLES LABORATORY [facility] Acute Care Lab [address] Lab (1st floor, no room number) [place] [address], [facility] [[email or web address]] [phone] * (ABNORMAL) Lipid panel (10/27/2016 8:44 AM CDT) Cholesterol 163 <200 mg/dL [facility] Triglycerides 118 <150 mg/dL [facility] HDL Cholesterol 35(L) >49 mg/dL [facility] LDL Cholesterol Calculated 104(H) <100 mg/dL [facility] Comment: Above desirable: ??100-129 mg/dl Borderline High: ??130-159 mg/dL High: ? 160-189 mg/dL Very high: ? >189 mg/dl Non HDL Cholesterol 128 <130 mg/dL [facility] Blood specimen (specimen) 10/27/2016 8:44 AM CDT 10/27/2016 8:54 AM CDT Augustina Ward APRN TIRE SERVICE TECHNICIAN LAB - BLOOD O RDERABLES [facility] [address] [place] [address] from Last 3 Months or Most Recently Relevant to Health Maintenance Advance Directives For more information, please contact: [phone] * Full Code (Latest Code Status on File) Date Activated Date Inactivated Comments 04/22/2017 9:01 PM 04/30/2017 5:05 PM * Full Code Date Activated Date Inactivated Comments 10/26/2016 7:28 PM 11/02/2016 10:57 PM Care Teams Lastex Operator Relationship Specialty Start Date End Date Angel Pérez MD [facility] [address] [place] [address] PCP - General Family Medicine 09/20/22
--- OUTSIDE RECORDS SUMMARY | 2024-03-13 16:27 | XMS_ITS | Encounter Summary ---
Author Organization [place] Address [address] [place] [address] Care Team Providers Care On Awake Counselor Name Role Phone Paty Perera Primary Care Provider [phone] Angel Pérez MD Primary Care Provider [phone] Reason for Visit * Reason Onset Date Comments MH/CD Inpatient 04/22/2017 Encounter Details Date Type Department Care Team ([facility] st Contact Info) Description 04/22/2017 Telephone [facility] Behavioral Health Intake [address] [place] [address] [phone] Generic, Behavioral Intake, MH/CD Inpatient Social History Tobacco Use Types Packs/Day Years Used Date Smoking Tobacco: Never Assessed Sex and Gender Information Value Date Recorded Sex Assigned at Not on file Gender Identity Not on file Sexual Orientation Not on file documented as of this encounter Miscellaneous Notes * Telephone Encounter - Noel Singh - 04/22/2017 5:[address]STER S: [facility] ED called to place a 32 y/o female for inpatient mental health treatment. B: Pt was brought to the ED due to a suicide attempt via overdose on tramadol. Pt had a similar OD on tramadol last October. Pt continues to endorse SI reporting that if she goes home she will take pillsor do something else irrational. Pt is prescribed tramadol, fluoxetine, hydroxyzine, Prozac, and Depakote. Pt has been medically cleared. Pt is voluntary but Dr. Farley indicated that he would be willing to place the patient on a hold. A: Refer to inpatient unit for mental health treatment. R: Admit to . under Dr. Jones. Approved by Dr. Britton. E TESTER documented in this encounter Plan of Treatment Not on file documented as of this encounter Visit Diagnoses Not on filedocumented in this encounter Care Teams On Awake Counselor Relationship Specialty Start Date End Date Paty Perera [address] [address] [place] [address] PCP - General Nurse Practitioner 10/26/16 09/19/22 Angel Pérez MD [address] [address] PCP - General Family Medicine 09/20/22 documented as of this encounter
--- OUTSIDE RECORDS SUMMARY | 2024-03-13 16:27 | XMS_ITS | Clinical Summary ---
Author Organization [place] Address [address] [facility] [place] [address] Care Team Providers Care [employer] Maintenance Worker Name Role Phone Angel Pérez MD Primary Care Provider [phone] Allergies No known active allergies Medications Medication [...] 103.4 kg (228 lb) 04/29/2022 1:16 PM ABRASIVE WATER JET CUTTER OPERATOR Height 157.5 cm (5' 2) 04/22/2017 7:38 PM ABRASIVE WATER JET CUTTER OPERATOR Body Mass Index 41.7 04/22/2017 7:38 PM ABRASIVE WATER JET CUTTER OPERATOR Plan of Treatment Health Maintenance Due Date Last Done Comments ADVANCE CARE PLANNING 1983 ANNUAL REVIEW OF HM ORDERS 1983 MAMMO SCREENING 1983 YEARLY PREVENTIVE VISIT 1983 HIV SCREENING 1998 HEPATITIS C SCREENING 2001 HEPATITIS A IMMUNIZATION (1 of 2 - Risk 2-dose series) 2002 HEPATITIS B IMMUNIZATION (1 of 3 - 19+ 3-dose series) 2002 PAP 02/06/2004 DTAP/TDAP/TD IMMUNIZATION (3 - Td or Tdap) 02/06/2017 02/06/2007, 06/30/1998 LIPID 2023 10/27/2016 COVID-19 Vaccine ( season) 2024 12/03/2020, 11/02/2020 INFLUENZA VACCINE (#1) 2024 1, 06/05/2009, 06/05/2009, Additional history exists GLUCOSE 09/20/2025 09/20/2022, 04/18, 04/22/2017 HPV IMMUNIZATION Aged Out No longer e ligible based on patient's age to complete this topic MENINGITIS IMMUNIZATION Aged Out No l onger eligible based on patient's age to complete this topic Pneumococcal Vaccine: Pediatrics (0 to 5 Years) and At-Risk Patients (6 to 64 Years) Aged Out No longer eligible based on patient's age to complete this topic RSV MONOCLONAL ANTIBODY Aged Out No l onger eligible based on patient's age to complete this topic Procedures Procedure Name Priority Date/Time Associated Diagnosis Comments COMPREHENSIVE METABOLIC PANEL STAT 09/20/2022 2:11 AM CDT LIPID PROFILE Routine 10/27/2016 8:44 AM CDT from Last 3 Months or Most Recently Relevant to Health Maintenance Results * (ABNORMAL) Comprehensive metabolic panel (09/20/2022 2:11 AM CDT) Sodium 138 136 - 145 mmol/L 09/20/2022 3:01 AM CDT LABORATORY Potassium 3.7 3.4 - 5.3 mmol/L 09/20/2022 3:01 AM CDT LABORATORY Chloride 103 98 - 107 mmol/L 09/20/2022 3:01 AM CDT LABORATORY Carbon Dioxide (CO2) 23 22 - 29 mmol/L 09/20/2022 3:01 AM CDT LABORATORY Anion Gap 12 7 - 15 mmol/L 09/20/2022 3:01 AM CDT LABORATORY Urea Nitrogen 10.1 6.0 - 20.0 mg/dL 09/20/2022 3:01 AM CDT LABORATORY Creatinine 0.56 0.51 - 0.95 mg/dL 09/20/2022 3:01 AM CDT LABORATORY Calcium 8.9 8.6 - 10.0 mg/dL 09/20/2022 3:01 AM CDT LABORATORY Glucose 101(H) 70 - 99 mg/dL 09/20/2022 3:01 AM CDT LABORATORY Alkaline Phosphatase 80 35 - 104 U/L 09/20/2022 3:01 AM CDT LABORATORY AST 26 10 - 35 U/L 09/20/2022 3:01 AM CDT LABORATORY ALT 32 10 - 35 U/L 09/20/2022 3:01 AM CDT LABORATORY Protein Total 7.0 6.4 - 8.3 g/dL 09/20/2022 3:01 AM CDT LABORATORY Albumin 4.3 3.5 - 5.2 g/dL 09/20/2022 3:01 AM CDT LABORATORY Bilirubin Total <0.2 <=1.2 mg/dL 09/20/2022 3:01 AM CDT LABORATORY GFR Estimate >90 >60 mL/min/1.7 3m2 09/20/2022 3:01 AM CDT [facility]ATORY Comment:eGFR calculated usin g 2020 CKD-EPI equation. Blood BLOOD SPECIMEN / Unknown Venipuncture / Unknown 09/20/2022 2:11 AM CDT 09/20/2022 2:17 AM CDT Zurdo Horton MD LAB - BLO OD ORDERABLES LABORATORY [facility] Acute Care Lab [address] [facility] Lab (1st floor, no room number) [place] [address] [phone] * (ABNORMAL) Lipid panel (10/27/2016 8:44 AM CDT) Cholesterol 163 <200 mg/dL [facility] Triglycerides 118 <150 mg/dL [facility] HDL Cholesterol 35(L) >49 mg/dL [facility] LDL Cholesterol Calculated 104(H) <100 mg/dL [facility] Comment: Above desirable: ??100-129 mg/dl Borderline High: ??130-159 mg/dL High: ? 160-189 mg/dL Very high: ? >189 mg/dl Non HDL Cholesterol 128 <130 mg/dL [facility] Blood specimen (specimen) 10/27/2016 8:44 AM CDT 10/27/2016 8:54 AM CDT Augustina Ward APRN CONDENSER OPERATOR LAB - BLOOD O RDERABLES [facility] [address] [place] [address] from Last 3 Months or Most Recently Relevant to Health Maintenance Advance Directives For more information, please contact: [phone] * Full Code (Latest Code Status on File) Date Activated Date Inactivated Comments 04/22/2017 9:01 PM 04/30/2017 5:05 PM * Full Code Date Activated Date Inactivated Comments 10/26/2016 7:28 PM 11/02/2016 10:57 PM Care Teams [employer] Maintenance Worker Relationship Specialty Start Date End Date Angel Pérez MD [address] [address] PCP - General Family Medicine 09/20/22
--- OUTSIDE RECORDS SUMMARY | 2024-03-13 16:27 | XMS_ITS | Clinical Summary ---
Author Organization [facility] Address [place], [place] [address] Care Team Providers Care Manual Winder Name Role Phone Pcp, No Primary Care Provider Unavailabl e Allergies No known active allergies Medications Medication Sig Dispensed Refills Start Date End Date Status vitamin-folic acid 1 mg ( VITAMIN) tablet/capsuleIndica tions: examination or test, unconfirmed Take 1 tablet by mouth once daily. 90 tablet 3 07/15/2013 Active albuterol HFA (VENTOLIN HFA) 90 mcg/actuation inhalerIndications:A cute bronchitis Inhale 2 Puffs by mouth 4 times daily if needed for Shortness Of Breath or Wheezing. 1 Inhaler 0 09/04/2013 Active cyclobenzaprine (FLEXERIL) 10 mg tablet 1 oral at bedtime for back pain, muscle contracture 15 tablet 0 10/10/2013 Active CPAPIndications:Obst ructive sleep apnea (adult) (pediatric) autoCPAP, heated humidifier, mask, headgear, filters and tubing. Pressure: 4-15cm/H2O Length of Need: 99 1 Device 0 10/16/2013 Active triamcinolone 0.1% TOPICAL (KENALOG) 0.1 % lotion Apply topically to affected area(s) 3 times daily. 1 Bottle 0 10/30/2013 Active HYDROcodone-acetamin ophen, 5-325 mg, (NORCO) per tabletIndications:Sa croiliitis (HC) Take 1 tablet by mouth every 4 hours if needed for Pain. Max acetaminophen dose: 4000mg in 24 hrs. 20 tablet 0 11/05/2013 Active ondansetron (ZOFRAN ODT) 4 mg disintegrating tabletIndications:Hy roneyis Place 1 tablet on the tongue every 8 hours if needed for Nausea/Vomiting. 40 tablet 0 12/05/2013 Active methylPREDNISolone (MEDROL, SANIYA,) 4 mg tabletIndications:Ot her infective acute otitis externa of left ear Take by mouth as instructed per packaging. 1 Package 0 12/08/2015 Active Active Problems Problem Noted Date Diagnosed Date PENNY 10/02/2013 AHI-10, REM 31 10/16/2013 Subchorionic hemorrhage 07/29/2013 Anemia 07/16/2013 Hx gestational diabetes 07/15/2013 Supervision of other normal 08/01/2010 Other chronic infective otitis externa 0 Seasonal allergies Immunizations Name Administration Dates Next Due Influenza, IIV3 (Age >=3 years) 04/07/2003 Tdap 02/06/2007 Family History Medical History Relation Name Comments Genetic Other HTN, heart dise ase, diabetes Relation Name Status Comments Other Social History Tobacco Use Types Packs/Day Years Used Date Smoking Tobacco: Never Smokeless Tobacco: Never Tobacco Cessation:Counseling Given: Yes Alcohol Use Standard Drinks/Week Comments No 0 (1 standard drink = 0.6 oz pur e alcohol) Alcoholic Drinks/day: 0 Sex and Gender Information Value Date Recorded Sex Assigned at Not on file Gender Identity Not on file Sexual Orientation Not on file Obstetrics History Para Term AB IAB SAB Ectopic Multiple Livin g Live Births 5 3 Date Outcome GA Total Labor Labor/2nd/3rd Weight Sex Type Anes PTL Charisma A1 A5 Name Clin Para Para Para Last Filed Vital Signs Vital Sign Reading Time Taken Comments Blood Pressure 116/77 01/17/2016 10:28 AM CDT Pulse 76 01/17/2016 10:28 AM CDT Temperature 36.8 ??C (98.3 ??F) 10/30/2013 1:05 PM CD T Respiratory Rate 16 01/17/2016 10:28 AM CDT Oxygen Saturation 98% 10/30/2013 1:05 PM CDT Inhaled Oxygen Concentration - - Weight 100.9 kg (222 lb 8 oz) 01/17/2016 10:28 A M CDT Height 157.5 cm (5' 2) 11/06/2013 3:49 PM CDT Body Mass Index 40.7 11/06/2013 3:49 PM CDT Plan of Treatment Health Maintenance Due Date Last Done Comments Depression screening for age 12+ 1995 BMI (ht and wt on same day) for age 18+ 2001 Hepatitis C screening for age 18-79 2001 Tetanus booster 02/06/2017 02/06/2007 Pap test for age 21-65 04/22/2022 9, 04/22/2019, 04/16/2014, Additional history exists COVID-19 vaccine series ( season) 2024 Influenza for age 9-49 02/17/2024 04/07/2003 Tdap Completed 02/06/2007 HIV for age 15-65 Completed 10/03/2010 Pneumococcal series for age 6-64 Aged Out No longer eligible based on patient's age to complete this topic Procedures Procedure Name Priority Date/Time Associated Diagnosis Comments SANITARY NAPKIN MACHINE TENDER THIN PREP PAP SCREEN IMAGED Routine 04/22/2019 3:30 PM J[employer]IOR [employer] PRINCIPAL ANTI HIV 1/2 Routine 10/03/2010 5:18 PM CDT Supervision of other normal from Last 3 Months or Most Recently Relevant to Health Maintenance Results * SANITARY NAPKIN MACHINE TENDER THIN PREP PAP SCREEN IMAGED (04/22/2019 3:30 PM J[employer]IOR [employer] PRINCIPAL) Case Report Gynecologic Cytology Report ? Case: [id number] ? Authorizing Provider: ??Leilani Dimas NP ? Collected: ? 04/22/2019 1530 ? Ordering Location: ? [facility] ?Received: ?04/24/2019 1236 ? First Screen: ?Diane Barajas ? Specimen: ?SANITARY NAPKIN MACHINE TENDER ThinPrep Vial Screening, Cervical/Vaginal ? 05/06/2019 4:[address] [facility] INTERPRETATION/ RESULT NEGATIVE FOR INTRAEPITHELIAL LESION OR MALIGNANCY (NIL) (none) 05/06/2019 4:58 PM [facility] IMEN ADEQUACY Satisfactory for evaluation Endocervical component present 05/06/2019 4:[address] [facility] HPV REQUEST HPV and PAP 05/06/2019 4:[address] [facility] Date of LMP 03/18/2019 05/06/2019 4:[address] [facility] Last Pap Date 04/16/2014 05/06/2019 4:[address] [facility] Last Pap Result NIL 9 4:58 PM [facility] Automated Review Successful 05/06/2019 4:[address] [facility] Comment:Specimen processed s uccessfully by automated assembly line machine operator device, ThinPrep Imaging System, [employer] ANCILLARY TESTING SANITARY NAPKIN MACHINE TENDER HPV Ordered, Please see separate report 05/06/2019 4:58 PM [facility] Note The pap test is a screening technique, not a diagnostic procedure. ??It is used primarily to screen for squamous cancers and precursor lesions. ??Published studies have shown that it is subject to both false negative and false positive results. ??The pap test should not be used as the sole means to diagnose or exclude pre-malignant and malignant lesions. Cytology is screened and interpreted at [facility], Central Laboratory - [address] [place] [address] [address], [place] [address] and [facility] - [address]; [place] [address] and [facility] - [address]; [place] [address] and [facility] [address]; [place] [address] 05/06/2019 4:58 PM J[employer]IOR [employer]IGH [employer] PRINCIPAL [facility]-C ENTRAL LABORATORY Other (Cervical/Vagina l) 04/22/2019 3:30 PM JUNIOR HIGH [employer] PRINCIPAL 04/24/2019 12:36 PM J[employer] PRINCIPAL Leilani Dimas NP PATHOLOGY/CYTOLOGY [facility]-CENTRAL LABORATORY [address] [place] [address], * ANTI HIV 1/2 (10/03/2010 5:18 PM CDT) ANTI HIV 1/2 Non-reacti ve [facility] Blood specimen (specimen) BLOOD SPECIMEN / Unknown 10/03/2010 5:18 PM CDT 10/03/2010 5:17 PM CDT Adriana Modi MD SEND OUTS [facility] [place]NAL ZIP [id number] [place] [id number] from Last 3 Months or Most Recently Relevant to Health Maintenance Care Teams Manual Winder Relationship Specialty Start Date End Date Pcp, No . PCP - General 09/05/16
== END 2024-03-13 16:21 | disposition home or self-care (01) ==
PROVIDERS: PCP Family Medicine; Visit Provider Family Medicine
DX: D64.9 Anemia, unspecified (principal); E55.9 Vitamin D deficiency, unspecified; Z13.220 Encounter for screening for lipoid disorders; Z13.228 Encounter for screening for other metabolic disorders; Z13.29 Encounter for screening for other suspected endocrine disorder
CPT/HCPCS: 80053; 80061; 82306; 82728; 83540; 84443

== ENCOUNTER 2024-10-27 10:08 | Outpatient (CLI) | payer OTHER, SELFPAY | END 2024-10-27 10:09 | disposition home or self-care (01) | PROVIDERS: PCP Family Medicine; Visit Provider Physician Assistant Medical | DX: E55.9 Vitamin D deficiency, unspecified (principal); R10.32 Left lower quadrant pain; D64.9 Anemia, unspecified; R20.8 Other disturbances of skin sensation | CPT/HCPCS: 82306; 82607; 82728 ==

== ENCOUNTER 2024-12-29 12:10 | Outpatient (CLI) | payer OTHER, SELFPAY | END 2024-12-29 12:11 | disposition home or self-care (01) | LOC: LKVREF 12:13 | PROVIDERS: PCP Family Medicine; Visit Provider Family Medicine | DX: R10.9 Unspecified abdominal pain (principal); D64.9 Anemia, unspecified | CPT/HCPCS: 80053; 87086 ==

== ENCOUNTER 2024-12-29 13:46 | Emergency (ER) | payer OTHER, SELFPAY ==
--- OUTSIDE RECORDS SUMMARY | 2023-02-20 23:30 | XMS_ITS | Continuity of Care Document ---
Author Organization [facility] Address [address] [address] [place] [address] Phone Care Team Providers Care Rand Cementer Name Role Phone No Information Unavailable Unavailable Allergies, Adverse Reactions, Alerts Substance Reaction Status [...] Diagnoses Date Provider Providers Copied on Encounter [facility], [address] [address], [place], [id number], [place] tel:[phone] No Information Feb-0 3 No Information Established Level 4 or 25-39 min [facility], [address] [address], [place], [id number], [place] tel:[phone] [facility] Symptoms or Concerns (chief complaint) Left lower quadrant painNauseaIron deficiency anemia, unspecified iron deficiency anemia typeH. pylori infectionHistory of colon polyps 0 Tan Jesus. [address], [id number], [place]. tel:[phone] Referring Provider: Referral Self, USE FOR SELF REFERRALS. [facility], [address] [address], [place], [id number], [place] tel:[phone] [facility] No Information 0 Nichelle Duncan. [address], [id number], [place]. tel:[phone] [facility], [address] [address], [place], [id number], [place] tel:[phone] [facility] Anemia, unspecifiedNause aLeft lower quadrant painHemorrhoids, unspecified hemorrhoid typePolyp of rectumPolyp of cecumBenign neoplasm of cecumGastritis, unspecified, without bleedingHelicoba cter pylori as the cause of diseases classd elswhrAnemia, unspecifiedGastr itis, unspecified, without bleedingBenign neoplasm of cecum 0 Nichelle Duncan. [address], [id number], [place]. tel:[phone] Referring Provider: Referral Self, USE FOR SELF REFERRALS. [facility], [address] [address], [place], [id number], [place] tel:[phone] [facility] No Information 0 Tan Jesus. [address], [id number], . tel:[phone] Referring Provider: Referral Self, USE FOR SELF REFERRALS. New Level 4 or 45-59 min [facility], [address] [address], [place], [place], [id number], tel:[phone] [facility] Symptoms or Concerns (chief complaint) Left lower quadrant abdominal painNauseaAnemia , unspecified type 0 Tan Jesus. [address] [facility], [address], [place], [place], [id number], [place]. tel:[phone] Referring Provider: Angel Pérez MD, [address] [place], [address]. tel:[phone] Family History Family Member Type Diagnosis Age At Onset Father Problem (finding) Alive and well Mother Problem (finding) Alive and well Immunizations Vaccine Date Status Comments Influenza, seasonal, injecta ble, preservative free administered Note: [employer] bi-direct ional interface ; Source: Other Registry Novel [id number], all formulations administered Note: [facility] bi-direct ional interface ; Source: Other Registry tetanus toxoid, reduced diphtheria toxoid, and acellular pertussis vaccine, adsorbed administered Note: [employer] b i-directional interface ; Source: Other Registry Influenza, seasonal, injectable administe red Note: [facility] bi- directional interface ; Source: Other Registry tetanus and diphtheria toxoi ds, adsorbed, preservative free, for adult use (2 Lf of tetanus toxoid and 2 Lf of diphtheria toxoid) administered Note: [employer] bi-direct ional interface ; Source: Other Registry measles, mumps and rubella v irus vaccine administered Note: [employer] bi-direct ional interface ; Source: Other Registry Payers Payer name Insurance type Covered constitution party ID Authoriza tion(s) No Information Social [...] to confirm successful treatment3. f/u with pcp, religious healer regarding anemia and left lower pain4. can [...]
--- OUTSIDE RECORDS SUMMARY | 2023-02-20 23:30 | XMS_ITS | Continuity of Care Document ---
Author Organization [facility] Address [address] [address] [place] [address] Phone Care Team Providers Care Process Designer Name Role Phone No Information Unavailable Unavailable [...] Diagnoses Date Provider Providers Copied on Encounter [facility], [address] [address], [place], [id number], [place] tel:[phone] No Information Feb-0 3 No Information Established Level 4 or 25-39 min [facility], [address] [address], [place], [id number], [place] tel:[phone] [facility] Symptoms or Concerns (chief complaint) Left lower quadrant painNauseaIron deficiency anemia, unspecified iron deficiency anemia typeH. pylori infectionHistory of colon polyps 0 Tan Jesus. [address], [id number], [place]. tel:[phone] Referring Provider: Referral Self, USE FOR SELF REFERRALS. [facility], [address] [address], [place], [id number], [place] tel:[phone] [facility] No Information 0 Nichelle Duncan. [address], [id number], [place]. tel:[phone] [facility], [address] [address], [place], [id number], [place] tel:[phone] [facility] Anemia, unspecifiedNause aLeft lower quadrant painHemorrhoids, unspecified hemorrhoid typePolyp of rectumPolyp of cecumBenign neoplasm of cecumGastritis, unspecified, without bleedingHelicoba cter pylori as the cause of diseases classd elswhrAnemia, unspecifiedGastr itis, unspecified, without bleedingBenign neoplasm of cecum 0 Nichelle Duncan. [address], [id number], [place]. tel:[phone] Referring Provider: Referral Self, USE FOR SELF REFERRALS. [facility], [address] [address], [place], [id number], [place] tel:[phone] [facility] No Information 0 Tan Jesus. [address], [id number], . tel:[phone] Referring Provider: Referral Self, USE FOR SELF REFERRALS. New Level 4 or 45-59 min [facility], [address] [address], [place], [place], [id number], tel:[phone] [facility] Symptoms or Concerns (chief complaint) Left lower quadrant abdominal painNauseaAnemia , unspecified type 0 Tan Jesus. [address] [facility], [address], [place], [place], [id number], [place]. tel:[phone] Referring Provider: Angel Pérez MD, [address] [place], [address]. tel:[phone] Family History Family Member Type Diagnosis Age At Onset Father Problem (finding) Alive and well Mother Problem (finding) Alive and well Immunizations Vaccine Date Status Comments Influenza, seasonal, injecta ble, preservative free administered Note: [employer] bi-direct ional interface ; Source: Other Registry Novel [id number], all formulations administered Note: [facility] bi-direct ional interface ; Source: Other Registry tetanus toxoid, reduced diphtheria toxoid, and acellular pertussis vaccine, adsorbed administered Note: [employer] b i-directional interface ; Source: Other Registry Influenza, seasonal, injectable administe red Note: [facility] bi- directional interface ; Source: Other Registry tetanus and diphtheria toxoi ds, adsorbed, preservative free, for adult use (2 Lf of tetanus toxoid and 2 Lf of diphtheria toxoid) administered Note: [employer] bi-direct ional interface ; Source: Other Registry measles, mumps and rubella v irus vaccine administered Note: [employer] bi-direct ional interface ; Source: Other Registry [...] to confirm successful treatment3. f/u with pcp, supervising bailiff regarding anemia and left lower pain4. can [...]
[2024-12-29 14:06] VITALS: BP 119/80; PULSE 89; RESP 20; TEMP 36.3; O2SAT 98
--- NOTE | 2024-12-29 14:13 | ED.ABDPAIN ---
HPI - Abdominal Pain General Time Seen by Provider: 14:14 Date Seen: 12/29/24 Chief Complaint: Abdominal Pain Stated Complaint: pain in lower abdomen Time Seen by Provider: 12/29/24 14:04 Source: patient, RN notes reviewed and old records reviewed Mode of arrival: ambulatory Limitations: no limitations History of Present Illness HPI narrative: Shahana is a very pleasant 39-year-old female with a history of chronic abdominal pain, tramadol use, depression anxiety, stress incontinence who comes to emergency room from the clinic after seeing Dr. Pérez today for abdominal pain. Patient notes that she has actually had left lower quadrant pain for years but on SundayDecember 26 felt that was increasing. She is wondering if maybe she ate something that caused her to have food poisoning as since Sunday she has had increasing abdominal pain lower as well as upper left abdomen. This is associated with a watery diarrhea and chills but no fever. She also has had significant nausea. No other illnesses in her home at this time. No recent travel. Locations that she normally takes is not working for this discomfort. She notes that she tried to rest over the weekend or the last 48 hours in the hopes that this would improved. During that time she had no fever but did have chills. Related Data Previous Rx's ?Medication ?Instructions ?Recorded cetirizine 10 mg tablet (Zyrtec) 10 mg PO QDAY PRN allergy symptoms 12/06/23 #90 tabs iron,carbonyl 65 mg-vitamin C 125 1 tab PO BID #60 tabs 03/14/24 mg tablet,delayed release (Vitron-C) cholecalciferol (vitamin D3) 125 125 mcg PO QDAY #90 caps 10/29/24 mcg (5,000 unit) capsule celecoxib 200 mg capsule (Celebrex) 200 mg PO QDAY #90 caps 10/31/24 duloxetine 30 mg capsule,delayed 30 mg PO QDAY #90 caps 10/31/24 release (Cymbalta) pantoprazole 20 mg tablet,delayed 20 mg PO DAILY #90 tabs 10/31/24 release (Protonix) cyclobenzaprine 10 mg tablet 10 mg PO TID PRN muscle spasm #30 12/29/24 tabs gabapentin 300 mg capsule 300 mg PO TID #90 caps 12/29/24 lorazepam 0.5 mg tablet 0.5 mg PO BID PRN anxiety #30 tabs 12/29/24 ondansetron 4 mg disintegrating 4 mg PO Q8H #10 tabs 12/29/24 tablet tramadol 50 mg tablet 50 mg PO BID PRN pain #30 tabs 12/29/24 Allergies Allergy/AdvReac Type Severity Reaction Status Date / Time No Known Drug Allergies Allergy Verified 12/29/24 14:03 Review of Systems Status of ROS Reports: 10 or more systems reviewed and unremarkable except as noted in History and below Narrative Patient denies as she has had bilateral fallopian tube removal. Const Reports: chills and fatigue; Denies: fever ENMT Denies: throat pain, neck pain or nasal congestion Cardio Denies: chest pain or shortness of breath with exertion Resp Denies: shortness of breath or cough GI Reports: abdominal pain, nausea and diarrhea Denies: painful urination Musculo Denies: neck pain Endo Reports: fatigue PFSH PFSH Medical History Lumbar back pain with radiculopathy affecting left lower extremity ?M54.16 - Radiculopathy, lumbar region (ICD-10) Depression with anxiety ?F41.8 - Other specified anxiety disorders (ICD-10) Allergic rhinitis ?J30.9 - Allergic rhinitis, unspecified (ICD-10) Bronchitis ?J40 - Bronchitis, not specified as acute or chronic (ICD-10) Travelers' diarrhea ?A09 - Infectious gastroenteritis and colitis, unspecified (ICD-10) Wheezing (~03/26/24) ?R06.2 - Wheezing (ICD-10) Sinus congestion ?R09.81 - Nasal congestion (ICD-10) Anemia ?D64.9 - Anemia, unspecified (ICD-10) Post-traumatic stress ?F43.10 - Post-traumatic stress disorder, unspecified (ICD-10) History of intentional self-harm Passive suicidal ideations ?R45.851 - Suicidal ideations (ICD-10) Vitamin D deficiency ?E55.9 - Vitamin D deficiency, unspecified (ICD-10) Medication management ?Z79.899 - Other shelter (current) drug therapy (ICD-10) Chronic left lower quadrant pain ?R10.32 - Left lower quadrant pain (ICD-10) ?G89.29 - Other chronic pain (ICD-10) Adverse effect of vaccine ?T50.Z95A - Adverse effect of other vaccines and biological substances, initial encounter (ICD-10) H/O gestational diabetes mellitus, not currently ?Z86.32 - Personal history of gestational diabetes (ICD-10) Vaginal delivery ?O80 - Encounter for full-term uncomplicated delivery (ICD-10) Labyrinthitis ?H83.09 - Labyrinthitis, unspecified ear (ICD-10) History of suicide attempt (2017) ?Z91.51 - Personal history of suicidal behavior (ICD-10) Surgical History History of bilateral ligation of fallopian tubes ?Z98.51 - Tubal ligation status (ICD-10) Family History Maternal Grandmother Cardiovascular disease Diabetes Mother Diabetes Social History Narrative: Cis-gender, heterosexual woman Relationship status: . 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 Illicit/recreational drugs: No Safety concerns at home or work: No Dietary restriction(s): No Exercise: No. Smoking Status: Never smoker How often do you have a drink containing alcohol: never AUDIT-C Alcohol total score: 0 Non-prescribed substance use: denies use Caffeine: Yes (1 cup coffee) Are you using contraception or practicing any form of control: No Exam Narrative: Exam Narrative: Alert and oriented. No acute distress. External ears eyes nose clear. Heart with regular rate and rhythm and lungs are clear. Abdomen showed tenderness in the left upper and left lower quadrant. No tenderness in the right side. Bowel sounds are present. Abdomen does not seem distended. Const: Vital Signs, click to edit/add: Vital Signs - 24 hr 12/29/24 14:06 Temperature 97.4 F L Pulse Rate [Pulse Oximeter] 89 Respiratory Rate 20 Blood Pressure [Ri ght Upper Arm] 119/80 Pulse Oximetry 98 Oxygen Delivery Me thod Room Air Documenting provider has reviewed patient's vital signs: yes Course Course ED Course: Differential diagnosis includes but is not limited to gastroenteritis, food-borne illness, colitis, Jet RD a, viral infection, exacerbation of chronic pain. At this time will place IV give 1 L of normal saline Toradol 15 mg Zofran 4 mg. Plan on abdominal CT given the ongoing symptoms patient is in agreement with this plan. Reevaluation(s) Reevaluation #1: Patient did receive Toradol and Zofran. Prior to her departure for CT she did instruct the nurse that sherequesteda stronger pain medication upon her return as Toradol was not working. We did give her morphine 4 mg and she had improvement of her symptoms. No further vomiting or stool while in the ED. Therefore we were unable to collect a stool sample. Vital Signs Vital signs: Initial Vital Signs Temperature 97.4 F L 12/29/24 14:06 Temperature Source Temporal Artery Scan 12/29/24 14:06 Pulse Rate 89 12/29/24 14:06 Respiratory Rate 20 12/29/24 14:06 Blood Pressure 119/80 12/29/24 14:06 Blood Pressure Mean 93 12/29/24 14:06 Pulse Oximetry 98 12/29/24 14:06 Oxygen Delivery Method Room Air 12/29/24 14:06 Vital Signs Temperature 97.4 F L 12/29/24 14:06 Pulse Rate 89 12/29/24 14:06 Respiratory Rate 20 12/29/24 14:06 Blood Pressure 119/80 12/29/24 14:06 Pulse Oximetry 98 12/29/24 14:06 Oxygen Delivery Method Room Air 12/29/24 14:06 Temperature 97.4 F L 12/29/24 14:06 Pulse Rate 89 12/29/24 14:06 Respiratory Rate 20 12/29/24 14:06 Blood Pressure 119/80 12/29/24 14:06 Pulse Oximetry 98 12/29/24 14:06 Oxygen Delivery Method Room Air 12/29/24 14:06 Medications Administered Medications: Discontinued Medications Generic Name Dose Route Start Last Admin Trade Name Freq PRN Reason Stop Dose Admin Sodium Chloride 1,000 mls @ 1,000 mls/hr 12/29/24 14:31 12/29/24 14:42 0.9 % Sodium Chloride 1000 Ml IV 12/29/24 15:30 1,000 mls/hr .Q1H KYLE Administration Ketorolac Tromethamine 15 mg 12/29/24 14:31 12/29/24 14:42 Ketorolac 15 Mg/Ml Inj IVP 12/29/24 14:32 15 mg ONCE ONE Administration Morphine Sulfate 4 mg 12/29/24 15:02 12/29/24 15:08 Morphine 4 Mg/Ml Inj IVP 12/29/24 15:03 4 mg ONCE ONE Administration Ondansetron HCl 4 mg 12/29/24 14:31 12/29/24 14:43 Ondansetron 2 Mg/Ml Inj IVP 12/29/24 14:32 4 mg ONCE ONE Administration MDM - Abdominal Pain MDM Narrative Medical decision making narrative: 1. Abdominal pain-CT is normal with no evidence of diverticulitis, colitis or other abnormality. Patient had been given Toradol and Zofran and morphine. She is requesting further medication for at home and I have declined that request. She may use Tylenol or ibuprofen as needed for pain. Any stronger pain medications will need to go through her primary MD. 2. Diarrhea-no evidence of colitis noted. She was unable to provide a stool sample. Certainly this could be viral versus bacterial or food-borne cause. We do have a stool culture as well as a GI pathogen panel ordered. 3. Chronic pain abdomen-normal CT. 4. Disposition-home at this time. Zofran 4 mg ODT Q 8 hours as needed for nausea. Expect diarrhea to improve somewhat this evening as she did receive he narcotic. However diarrhea will probably continue tomorrow and into the following day. It is important to push fluids. Avoid ammonium. Return to the ER for worsening symptoms. Drop sample of stool off with us for stool studies. Patient had not been able to leave urinalysis and feels that she can do that prior to departure. Will call her if that appears to be abnormal. Dictation done with voice recognition, and as a result, wrong word or [id number] substitutions may have occurred.? There may be errors in the script that have gone undetected.? Please consider this when interpreting information found in this chart. Addendum: Urinalysis without evidence of UTI. Medical Records Attestation: I reviewed the patient's medical records. Lab Data Attestation: I reviewed the patient's lab results. Labs: Lab Results 12/29/24 12/29/24 Range/Units 14:31 16:53 WBC 9.48 (4.50-11.00) K/uL RBC 4.61 (4.00-5.20) m/uL Hgb 13.2 (12.0-16.0) gm/dL Hct 40.3 (33.0-51.0) % MCV 87 (80-100) fL MCH 29 (26-34) pg MCHC 33 (32-36) gm/dL RDW Coeff of Michelle 11.8 (11.5-15.5) % Plt Count 368 (140-440) K/uL Neut % (Auto) 64.5 (42.0-72.0) % Lymph % (Auto) 25.4 (20-44) % [place] % (Auto) 6.5 (0.0-11.0) % Eos % (Auto) 2.3 (0.0-7.0) % Baso % (Auto) 0.7 (0.0-3.0) % Neut # (Auto) 6.10 (1.7-7.0) K/uL Lymph # (Auto) 2.41 (0.90-2.90) K/uL [place] # (Auto) 0.60 (0.00-0.90) K/UL Eos # (Auto) 0.22 (0.00-0.50) K/uL Baso # (Auto) 0.07 (0.00-0.30) K/uL Abs Immat Gran (auto) 0.06 (0.00-0.30) K/uL Imm/Tot Granulo (auto) 0.6 % Sodium 136 (135-149) mmol/L Potassium 4.1 (3.6-5.1) mmol/L Chloride 104 (96-114) mmol/L Carbon Dioxide 25 (20-32) mmol/L Anion Gap 7 (7-15) mEq/L BUN 14 (5-24) mg/dL Creatinine 0.5 (0.5-1.5) mg/dL Estimated GFR 121 ml/min Glucose 85 (60-115) mg/dL Lactate 0.8 (0.5-1.9) mmol/L Calcium 9.1 (8.4-10.6) mg/dL Total Bilirubin 0.3 (0.1-1.5) mg/dL AST 24 (12-35) U/L ALT 19 (4-35) U/L Alkaline Phosphatase 59 (40-150) U/L C-Reactive Protein 1.0 (0.5-1.0) mg/dL Total Protein 7.4 (6.0-8.3) g/dL Albumin 4.2 (3.3-5.0) g/dL Lipase 75 (23-300) U/L Urine Color Yellow (Yellow) Urine Appearance Clear (Clear) Urine pH 6.0 (5.0-8.5) Ur Specific [place] 1.010 (1.000-1.030) Urine Protein Negative (Negative) Urine Glucose (UA) Negative (Negative) Urine Ketones Negative (Negative) Urine Blood Negative (Negative) Urine Nitrite Negative (Negative) Urine Bilirubin Negative (Negative) Urine Urobilinogen 0.2 (0.2-1.0) Ur Leukocyte Esterase Negative (Negative) Urine RBC 0-2 (0-2) Urine WBC 0-2 (0-5) Ur Squamous Epith Cells None (None-Few) Urine Bacteria None (None) Imaging Data CT scan - abdomen: Attestation: I have reviewed the pertinent imaging results. My impression: I do not note any acute findings by my read. Radiologist's impression: Lung bases: Normal. Liver: Normal. No mass. Gallbladder and bile ducts: Normal gallbladder. No bile duct dilation. Pancreas: Normal. Spleen: Normal. Adrenal glands: Normal. Kidneys: Normal parenchyma. No cyst or solid mass. No calculi. No urinary tract dilation. Urinary bladder: Normal. Pelvis: No worrisome cyst or mass. Vessels: Normal. Bowel: No dilated or inflamed bowel. Normal appendix. Very small stool burden. Lymph nodes: No adenopathy. Peritoneum: No ascites. Abdominal wall: Fat containing umbilical hernia. No bowel containing hernia. Bones: No fractures. No focal worrisome bone lesions. IMPRESSION: Normal CT of the abdomen and pelvis. Discharge Plan Discharge Clinical Impression: Abdominal pain, Diarrhea Patient Disposition: Home, Self-Care Condition: Improved Additional Instructions: Zofran as needed for nausea. You may use ibuprofen or Tylenol for pain control. Will await the stool cultures. CT is normal without any abnormalities. Prescriptions: New ondansetron 4 mg tablet,disintegrating 4 mg PO Q8H Qty: 10 0RF No Action cetirizine [Zyrtec] 10 mg tablet 10 mg PO QDAY PRN (Reason: allergy symptoms) Qty: 90 1RF duloxetine [Cymbalta] 30 mg capsule,delayed release(DR/EC) 30 mg PO QDAY Qty: 90 1RF pantoprazole [Protonix] 20 mg tablet,delayed release (DR/EC) 20 mg PO DAILY Qty: 90 1RF celecoxib [Celebrex] 200 mg capsule 200 mg PO QDAY Qty: 90 1RF lorazepam 0.5 mg tablet 0.5 mg PO BID PRN (Reason: anxiety) Qty: 30 0RF cyclobenzaprine 10 mg tablet 10 mg PO TID PRN (Reason: muscle spasm) Qty: 30 1RF tramadol 50 mg tablet 50 mg PO BID PRN (Reason: pain) Qty: 30 0RF gabapentin 300 mg capsule 300 mg PO TID Qty: 90 0RF Vitron-C 65 mg iron- 125 mg tablet,delayed release (DR/EC) 1 tab PO BID Qty: 60 3RF cholecalciferol (vitamin D3) 125 mcg (5,000 unit) capsule 125 mcg PO QDAY Qty: 90 3RF Follow Up/Referrals: Angel Pérez MD [Primary Care Provider, Family Practice] Stand Alone Forms: [facility] Info Instructions
--- NOTE | 2024-12-29 14:31 | CRLHL7_ITS ---
For Patients: As a result of the Century Cures Act, medical imaging exams and procedure reports are released immediately into your electronic medical record. You may view this report before your referring provider. If you have questions, please contact your health care provider. INDICATION: Left lower quadrant pain for 3 days. COMPARISON: 01/18/2023 TECHNIQUE: CT of the abdomen and pelvis with intravenous contrast. Multiplanar axial, coronal, and sagittal reformats were reconstructed. Contrast: 106 mL Isovue 370. FINDINGS: Lung bases: Normal. Liver: Normal. No mass. Gallbladder and bile ducts: Normal gallbladder. No bile duct dilation. Pancreas: Normal. Spleen: Normal. Adrenal glands: Normal. Kidneys: Normal parenchyma. No cyst or solid mass. No calculi. No urinary tract dilation. Urinary bladder: Normal. Pelvis: No worrisome cyst or mass. Vessels: Normal. Bowel: No dilated or inflamed bowel. Normal appendix. Very small stool burden. Lymph nodes: No adenopathy. Peritoneum: No ascites. Abdominal wall: Fat containing umbilical hernia. No bowel containing hernia. Bones: No fractures. No focal worrisome bone lesions. IMPRESSION: Normal CT of the abdomen and pelvis. Please note that all CT scans at this facility use dose modulation, iterative reconstruction, and/or weight-based dosing when appropriate to reduce radiation dose to as low as reasonably achievable. Dictated by Elizabet Grande MD @ 12/29/2024 3:21:35 PM (Electronically Signed)
[2024-12-29] MEDS: ONDANSETRON 2 MG/ML inj 4 MG IVP (14:43)
[2024-12-29 14:46] LABS: Lactate* 0.8 mmol/L (0.5-1.9)
[2024-12-29 14:51] LABS: Hematocrit 40.3 % (33.0-51.0); Hemoglobin* 13.2 gm/dL (12.0-16.0); Immature Granulocytes Abs Auto 0.06 K/uL (0.00-0.30); Immature Granulocytes Pct Auto 0.6 %; Lymphocytes Absolute Auto 2.41 K/uL (0.90-2.90); Mean Corpuscular HGB Conc 33 gm/dL (32-36); Mean Corpuscular Hemoglobin 29 pg (26-34); Mean Corpuscular Volume 87 fL (80-100); RDW Coefficient of Variation % 11.8 % (11.5-15.5); Red Blood Count 4.61 m/uL (4.00-5.20); White Blood Count* 9.48 K/uL (4.50-11.00)
[2024-12-29 14:54] LABS: Slide Review Reflex No
[2024-12-29 15:05] LABS: Albumin* 4.2 g/dL (3.3-5.0); Chloride* 104 mmol/L (96-114)
[2024-12-29 15:06] LABS: Potassium* 4.1 mmol/L (3.6-5.1); Sodium* 136 mmol/L (135-149)
[2024-12-29 15:08] LABS: Blood Urea Nitrogen* 14 mg/dL (5-24); Creatinine* 0.5 mg/dL (0.5-1.5); Estimated Glomerular Filt Rate 121 ml/min
[2024-12-29] MEDS: MORPHINE 4 MG/ML INJ IVP (15:08)
[2024-12-29 15:09] LABS: Alanine Aminotransferase* 19 U/L (4-35); Alkaline Phosphatase* 59 U/L (40-150); Anion Gap 7 mEq/L (7-15); Aspartate Amino Transferase* 24 U/L (12-35); Bilirubin Total* 0.3 mg/dL (0.1-1.5); Calcium* 9.1 mg/dL (8.4-10.6); Carbon Dioxide* 25 mmol/L (20-32); Glucose* 85 mg/dL (60-115); Total Protein* 7.4 g/dL (6.0-8.3)
[2024-12-29 17:07] LABS: Appearance Urine Clear (Clear)
== END 2024-12-29 17:00 | disposition home or self-care (01) ==
PROVIDERS: Emergency Provider Family Medicine; PCP Family Medicine
DX: R10.9 Unspecified abdominal pain (principal); R19.7 Diarrhea, unspecified
CPT/HCPCS: 36415; 74177; 80053; 81001; 83605; 83690; 85025; 86140; 87045; 87046; 87427; 87507; 96374; 96375; 99284; 99285; J1885; J2270; J2405; J7030; Q9967

== ENCOUNTER 2025-05-20 07:15 | Day surgery (SDC) | payer OTHER, SELFPAY ==
[2025-05-20] VITALS (32 sets, daily range): BP systolic 105–133; BP diastolic 55–85; PULSE 65–101; RESP 14–19; TEMP 36.3–37.7; O2SAT 88–99; BMI 41.2; BMI 41.1
--- OUTSIDE RECORDS SUMMARY | 2025-05-20 07:18 | XMS_ITS | Clinical Summary ---
Author Organization [employer] [facility] [employer] [facility] Address [address] [place] [id number] Care Team Providers Care Service Delivery Consultant Name Role Phone Pcp, No Primary Care Provider Unavailabl e Allergies No known active allergies Medications albuterol HFA (VENTOLIN HFA) 90 mcg/actuation inhalerIndication s:Acute bronchitis Inhale 2 Puffs by mouth 4 times daily if needed for Shortness Of Breath or Wheezing. 1 Inhaler 0 09/05/19 14 Active CPAPIndications:O bstructive sleep apnea (adult) (pediatric) autoCPAP, heated humidifier, mask, headgear, filters and tubing. Pressure: 4-15cm/H2O Length of Need: 99 1 Device 0 10/17/19 14 Active naproxen (NAPROSYN) 500 mg tabletIndications :Injury of right hand, initial encounter,Injury of right wrist, initial encounter Take 1 Tablet (500 mg) by mouth every 12 hours if needed for Pain. Take with food 20 Tablet 05/16/20 25 Active Metaxalone (SKELAXIN) 800 mg tabletIndications :Strain of right pectoralis muscle, initial encounter Take 1 Tablet (800 mg) by mouth three times daily for 7 days. 21 Tablet 05/16/20 25 025 Active vitamin-folic acid 1 mg ( VITAMIN) tablet/capsuleInd ications:Pregnanc y examination or test, unconfirmed Take 1 tablet by mouth once daily. 90 tablet 3 07/15/19 14 025 Discontin ued(*Lorie ent states no longer taking) cyclobenzaprine (FLEXERIL) 10 mg tablet 1 oral at bedtime for back pain, muscle contracture 15 tablet 0 10/11/19 14 025 Discontin ued(*Lorie ent states no longer taking) triamcinolone 0.1% TOPICAL (KENALOG) 0.1 % lotion Apply topically to affected area(s) 3 times daily. 1 Bottle 0 10/31/19 14 025 Discontin ued(*Lorie ent states no longer taking) HYDROcodone-aceta minophen, 5-325 mg, (NORCO) per tabletIndications :Sacroiliitis Take 1 tablet by mouth every 4 hours if needed for Pain. Max acetaminophen dose: 4000mg in 24 hrs. 20 tablet 0 11/06/19 14 025 Discontin ued(*Lorie ent states no longer taking) ondansetron (ZOFRAN ODT) 4 mg disintegrating tabletIndications :Hyperemesis Place 1 tablet on the tongue every 8 hours if needed for Nausea/Vomiting. 40 tablet 0 12/06/19 14 025 Discontin ued(*Lorie ent states no longer taking) methylPREDNISolon e (MEDROL, SANIYA,) 4 mg tabletIndications :Other infective acute otitis externa of left ear Take by mouth as instructed per packaging. 1 Package 0 12/08/19 16 025 Discontin ued(*Lorie ent states no longer taking) Hospital, Clinic, or Other Facility Administered Medication Ordered Dose Route Frequency Start Date End Date Status ketorolac 60 mg/2 mL (30 mg/mL) injection 60 mg 2 mLIndications:Injury of right hand, initial encounter,Injury of right wrist, initial encounter 60 mg IM ONE TIME 05/16/2025 05/16/2025 Ended Active Problems Problem Noted Date Diagnosed Date PENNY 10/02/2013 AHI-10, REM 31 10/16/2013 Subchorionic hemorrhage 07/29/2013 Anemia 07/16/2013 Hx gestational diabetes 07/15/2013 Supervision of other normal 08/01/2010 Other chronic infective otitis externa 0 Seasonal allergies Encounters Date Type Department Care Team Description 05/16/2025 7:35 PM MILLING PLANER OPERATOR Ancillary Procedure [facility] [address] [place] [phone] 05/16/2025 7:25 PM MILLING PLANER OPERATOR Ancillary Procedure [facility] [address] [place] [phone] 05/16/2025 6:45 PM MILLING PLANER OPERATOR Office Visit [facility] [place] [id number] [place] [phone] Alex Alvarado MD Hand Pain/problem 05/16/2025 Travel from Last 3 Months Immunizations Immunization Administration Dates Next Due Influenza, IIV3 (Age [...] oz pur e alcohol) Alcoholic Drinks/day: 0 Comments No Sex and Gender Information Value Date Recorded Sex Assigned at Not on file Legal Sex Female 5:26 AM MILLING PLANER OPERATOR Gender Identity Not on file Sexual Orientation Not on file Obstetrics History Para Term AB IAB SAB Ectopic Multiple Livin g Live Births 5 3 Date Outcome GA Total Labor Labor/2nd/3rd Weight Sex Type Anes PTL Charisma A1 A5 Name Clin Para Para Para Last Filed Vital Signs Vital Sign Reading Time Taken Comments Blood Pressure 124/72 05/16/2025 6:46 PM MILLING PLANER OPERATOR Pulse 70 05/16/2025 6:46 PM MILLING PLANER OPERATOR Temperature 37.2 C (98.9 F) 05/16/2025 6:46 PM MILLING PLANER OPERATOR Respiratory Rate 19 05/16/2025 6:46 PM MILLING PLANER OPERATOR Oxygen Saturation 98% 05/16/2025 6:46 PM MILLING PLANER OPERATOR Inhaled Oxygen Concentration - - Weight 102.4 kg (225 lb 12.8 oz) 05/16/2025 6:46 PM MILLING PLANER OPERATOR Height 157.5 cm (5' 2) 11/06/2013 3:49 PM CDT Body Mass Index - - Plan of Treatment Health Maintenance Due Date Last Done Comments Depression screening for age 12+ 1995 BMI (ht and wt on same day) for age 18+ 2001 Hepatitis C screening for age 18-79 2001 Hepatitis B series for 19+ (1 of 3 - 19+ 3-dose series) 2002 HPV series for age 9-45 (1 - 3-dose SCDM series) 2010 Tetanus booster 02/06/2017 02/06/2007 Pap test for age 21-65 04/22/2022 9, 04/22/2019, 04/16/2014, Additional history exists COVID-19 vaccine series (2024- season) 2025 Influenza Vaccine (#1) 2025 04/07/2003 RSV vaccine for adults or (1 - 1-dose 75+ series) 2058 HIV for age 15-65 Completed 10/03/2010 Pneumococcal series for age 6-49 Aged Out No longer eligible based on patient's age to complete this topic Procedures Procedure Name Priority Date/Time Associated Diagnosis Comments XR WRIST W NAVICULAR MINIMUM 3 VIEWS RIGHT STAT 05/16/2025 7:38 PM MILLING PLANER OPERATOR Injury of right wrist, initial encounter XR HAND 3 VIEWS RIGHT STAT 05/16/2025 7:30 PM MILLING PLANER OPERATOR Injury of right hand, initial encounter INSURANCE CLAIM APPROVER THIN PREP PAP SCREEN IMAGED Routine 04/22/2019 3:30 PM MILLING PLANER OPERATOR ANTI HIV 1/2 Routine 10/03/2010 5:18 PM CDT Supervision of other normal (HC) from Last 3 Months or Most Recently Relevant to Health Maintenance Results * XR WRIST W NAVICULAR MINIMUM 3 VIEWS RIGHT (05/16/2025 7:38 PM MILLING PLANER OPERATOR) Anatomical Region Laterality Modality WRISTS, WRIST R Computed Radiogr aphy 05/16/2025 7:38 PM MILLING PLANER OPERATOR Impressions 05/16/2025 8:03 PM MILLING PLANER OPERATOR Anatomic alignment. No acute displaced fracture. No significant joint space narrowing. No localizing soft tissue swelling. Narrative 05/16/2025 8:03 PM MILLING PLANER OPERATOR For Patients: As a result of the Cures Act, medical imaging exams and procedure reports are released immediately into your electronic medical record. You may view this report before your referring provider. If you have questions, please contact your health care provider. EXAM: XR HAND 3 VIEWS RIGHT, XR WRIST W NAVICULAR MINIMUM 3 VIEWS RIGHT LOCATION: [facility] DATE: 05/16/2025 INDICATION: Injury of right hand, initial encounter COMPARISON: None. Procedure Note Nikunj Bolton MD - 05/16/2025 For Patients: As a result of the s , medical imagingexams and procedure reports are released immediately into your electronicmedical record. You may view this report before your referring provider.If you have questions, please contact your health care provider. EXAM: XR HAND 3 VIEWS RIGHT, XR WRIST W NAVICULAR MINIMUM 3 VIEWS RIGHT LOCATION: [facility] DATE: 05/16/2025 INDICATION: Injury of right hand, initial encounter COMPARISON: None. IMPRESSION: Anatomic alignment. No acute displaced fracture. No significant jointspace narrowing. No localizing soft tissue swelling. Alex Alvarado MD GENERAL IMAGI NG Final Result * XR HAND 3 VIEWS RIGHT (05/16/2025 7:30 PM MILLING PLANER OPERATOR) Anatomical Region Laterality Modality HANDS, HAND R Computed Radiogr aphy 05/16/2025 7:30 PM MILLING PLANER OPERATOR Impressions 05/16/2025 8:03 PM MILLING PLANER OPERATOR Anatomic alignment. No acute displaced fracture. No significant joint space narrowing. No localizing soft tissue swelling. Narrative 05/16/2025 8:03 PM MILLING PLANER OPERATOR For Patients: As a result of the s , medical imaging exams and procedure reports are released immediately into your electronic medical record. You may view this report before your referring provider. If you have questions, please contact your health care provider. EXAM: XR HAND 3 VIEWS RIGHT, XR WRIST W NAVICULAR MINIMUM 3 VIEWS RIGHT LOCATION: [facility] DATE: 05/16/2025 INDICATION: Injury of right hand, initial encounter COMPARISON: None. Procedure Note Nikunj Bolton MD - 05/16/2025 For Patients: As a result of the s , medical imagingexams and procedure reports are released immediately into your electronicmedical record. You may view this report before your referring provider.If you have questions, please contact your health care provider. EXAM: XR HAND 3 VIEWS RIGHT, XR WRIST W NAVICULAR MINIMUM 3 VIEWS RIGHT LOCATION: [facility] DATE: 05/16/2025 INDICATION: Injury of right hand, initial encounter COMPARISON: None. IMPRESSION: Anatomic alignment. No acute displaced fracture. No significant jointspace narrowing. No localizing soft tissue swelling. Alex Alvarado MD GENERAL IMAGI Final Result * INSURANCE CLAIM APPROVER THIN PREP PAP SCREEN IMAGED (04/22/2019 3:30 PM MILLING PLANER OPERATOR) Case Report Gynecologic Cytology Report Case: [id number] Authorizing Provider: Leilani Dimas NP Collected: 04/22/2019 1530 Ordering Location: [facility] Received: 04/24/2019 1236 First Screen: Diane Barajas Specimen: INSURANCE CLAIM APPROVER ThinPrep Vial Screening, Cervical/Vaginal 05/06/2019 4:58 PM MILLING PLANER OPERATOR [facility] INTERPRETATION/ RESULT NEGATIVE FOR INTRAEPITHELIAL LESION OR MALIGNANCY (NIL) (none) 05/06/2019 4:58 PM MILLING PLANER OPERATOR [facility] ENTRAL [facility] at [address]58 MILLING PLANER OPERATOR SPECIMEN ADEQUACY Satisfactory for evaluation Endocervical component present 05/06/2019 4:58 PM MILLING PLANER OPERATOR [facility] EN[facility] HPV REQUEST HPV and PAP 05/06/2019 4:58 PM MILLING PLANER OPERATOR [facility] Date of LMP 03/18/2019 05/06/2019 4:58 PM MILLING PLANER OPERATOR [facility] EN[facility] Last Pap Date 04/16/2014 05/06/2019 4:58 PM MILLING PLANER OPERATOR [facility] Last Pap Result NIL 9 4:58 PM MILLING PLANER OPERATOR [facility] [employer] ENTRAL LABORATORY Automated Review Successful 05/06/2019 4:58 PM MILLING PLANER OPERATOR [facility] Comment:Specimen processed s uccessfully by automated sales secretary device, [employer] Imaging System, [employer] ANCILLARY TESTING INSURANCE CLAIM APPROVER HPV Ordered, Please see separate report 05/06/2019 4:58 PM MILLING PLANER OPERATOR [facility] ENTRAL LABORAT[facility] Note The pap test is a screening technique, not a diagnostic procedure. It is used primarily to screen for squamous cancers and precursor lesions. Published studies have shown that it is subject to both false negative and false positive results. The pap test should not be used as the sole means to diagnose or exclude pre-malignant and malignant lesions. Cytology is screened and interpreted at [facility] - [address], [place] [address] and [facility] - [address]; [place] [address] and [facility] - [address]; [place] [address] and [facility] [address]; [place] [address] 05/06/2019 4:58 PM MILLING PLANER OPERATOR [facility] ENTRAL LABORATORY Other (Cervical/Vagina l) 04/22/2019 3:30 PM MILLING PLANER OPERATOR 04/24/2019 12:36 PM MILLING PLANER OPERATOR Leilani Dimas NP PATHOLOGY/CYTOLOGY Final Re sult [facility] [address] [place] [address], [place] * ANTI HIV 1/2 (10/03/2010 5:18 PM CDT) ANTI HIV 1/2 Non-reacti ve [facility] Blood specimen (specimen) BLOOD SPECIMEN / Unknown 10/03/2010 5:18 PM CDT 10/03/2010 5:17 PM CDT us Adriana Modi MD SEND OUTS Final Result [facility] LAB[facility] [place]NAL ZIP [id number] [address] from Last 3 Months or Most Recently Relevant to Health Maintenance Care Teams Service Delivery Consultant Relationship Specialty Start Date End Date Pcp, No . PCP - General 09/05/16
--- OUTSIDE RECORDS SUMMARY | 2025-05-20 07:18 | XMS_ITS | Clinical Summary ---
Author Organization [place] Address [address] [facility] [place] [place] [address] Care Team Providers Care Traffic Expert Name Role Phone Angel Pérez MD Primary Care Provider [phone] Allergies No known active allergies Medications * This document contains information received from the source organization and may not represent a complete record from that organization. MELATONIN POIndications:In somnia Take 5-10 mg by mouth nightly as needed Active hypromellose (ARTIFICIAL TEARS) 0.5 % SOLN ophthalmic solution Place 1 drop into both eyes 4 times daily as needed for dry eyes Active acetaminophen (TYLENOL) 325 MG tabletIndication s:Chronic midline low back pain without sciatica Take 2 tablets (650 mg) by mouth every 4 hours as needed for mild pain 30 tablet 1 7 Active Additional Information Patient not taking.Reported on 04/29/2022 hydrOXYzine (ATARAX) 25 MG tabletIndication s:Recurrent major depressive disorder, in partial remission,Border line personality disorder (H) Take 2 tablets (50 mg) by mouth every 4 hours as needed for anxiety 90 tablet 1 7 Active Additional Information Patient not taking.Reported on 04/29/2022 divalproex (DEPAKOTE) 500 MG EC tabletIndication s:mood stabilizer Take 1 tablet (500 mg) by mouth 2 times daily 60 tablet 1 7 Active Additional Information Patient not taking.Reported on 04/29/2022 gabapentin (NEURONTIN) 800 MG tabletIndication s:Borderline personality disorder (H),Recurrent major depressive disorder, in partial remission,ABRAHAM (generalized anxiety disorder) Take 1 tablet (800 mg) by mouth 3 times daily 90 tablet 1 7 Active Additional Information Patient not taking.Reported on 04/29/2022 FLUoxetine (PROZAC) 20 MG capsuleIndicatio ns:Borderline personality disorder (H),ABRAHAM (generalized anxiety disorder),Recurr ent major depressive disorder, in partial remission Take 3 capsules (60 mg) by mouth daily 90 capsule 1 7 Active Additional Information Patient not taking.Reported on 04/29/2022 LORazepam (ATIVAN) 0.5 MG tablet Take 1 tablet (0.5 mg) by mouth every 6 hours as needed for anxiety 2 tablet 3 Active Active Problems Problem Noted Date Diagnosed Date Borderline personality disorder 04/27/2017 Recurrent major depressive disorder, in partial remission 04/27/2017 Chronic midline low back pain without sciatica 1 06/27/2016 ABRAHAM (generalized anxiety disorder) 04/27/2017 Unspecified mood (affective) disorder 04/23/2017 Overview (04/23/2017): Traits of rapid cycling bipolar disorder, however equivocal at this time Opiate dependence 04/23/2017 Overview (04/23/2017): Uses Tramadol Suicide attempt 04/22/2017 MENTAL HEALTH 10/26/2016 Social History Tobacco Use Types Packs/Day Years Used Date Smoking Tobacco: Never Smokeless Tobacco: Never Tobacco Cessation:Counseling Given: Not Answered Alcohol Use Standard Drinks/Week Comments Yes 0 (1 standard drink = 0.6 oz pur e alcohol) Adolescent Education Answer Date Record ed Getting School Help Needed Not on file 04/01 Comments Unknown Sex and Gender Information Value Date Recorded Sex Assigned at Not on file Legal Sex Female 4:31 AM WASHER CARCASS Gender Identity Not on file Sexual Orientation Not on file Last Filed Vital Signs Vital Sign Reading Time Taken Comments Blood Pressure 138/80 09/20/2022 12:30 AM CDT Pulse 82 09/20/2022 12:30 AM CDT Temperature 36.9 C (98.5 F) 09/20/2022 12:30 AM CDT Respiratory Rate 20 09/20/2022 12:30 AM CDT Oxygen Saturation 100% 09/20/2022 12:30 AM CDT Inhaled Oxygen Concentration - - Weight 103.4 kg (228 lb) 04/29/2022 1:16 PM WASHER CARCASS Height 157.5 cm (5' 2) 04/22/2017 7:38 PM WASHER CARCASS Body Mass Index 41.7 04/22/2017 7:38 PM WASHER CARCASS Plan of Treatment Health Maintenance Due Date Last Done Comments ADVANCE CARE PLANNING 1983 ANNUAL REVIEW OF HM ORDERS 1983 ABRAHAM ASSESSMENT 1983 MAMMO SCREENING 1983 PHQ-9 1983 YEARLY PREVENTIVE VISIT 1986 HIV SCREENING 1998 HEPATITIS C SCREENING 2001 HEPATITIS A VACCINE (1 of 2 - Risk 2-dose series) 2002 HEPATITIS B VACCINE (1 of 3 - 19+ 3-dose series) 2002 PAP 02/06/2004 DTAP/TDAP/TD VACCINE (3 - Td or Tdap) 02/06/2017 02/06/2007, 06/30/1998 LIPID 2023 10/27/2016 COVID-19 VACCINE ( season) 2025 12/03/2020, 11/02/2020 INFLUENZA VACCINE (#1) 2025 1, 06/05/2009, 06/05/2009, Additional history exists DIABETES SCREENING 09/20/2025 09/20/2022, 1 06/29/2021, 04/22/2017 ZOSTER VACCINE (1 of 2) 2033 HPV VACCINE (No Doses Required) Completed MENINGITIS VACCINE Aged Out No longer eligible based on patient's age to complete this topic PNEUMOCOCCAL VACCINE: PEDIATRICS (0 to 5 YEARS) AND AT-RISK PATIENTS (6 to 49 YEARS) Aged Out No longer eligible based on [...] 136 - 145 mmol/L 09/20/2022 3:01 AM [facility] Potassium 3.7 3.4 - 5.3 mmol/L 09/20/2022 3:01 AM [facility] Chloride 103 98 - 107 mmol/L 09/20/2022 3:01 AM [facility] Carbon Dioxide (CO2) 23 22 - 29 mmol/L 09/20/2022 3:01 AM [facility] Anion Gap 12 7 - 15 mmol/L 09/20/2022 3:01 AM [facility] Urea Nitrogen 10.1 6.0 - 20.0 mg/dL 09/20/2022 3:01 AM [facility] Creatinine 0.56 0.51 - 0.95 mg/dL 09/20/2022 3:01 AM [facility] Calcium 8.9 8.6 - 10.0 mg/dL 09/20/2022 3:01 AM [facility] Glucose 101(H) 70 - 99 mg/dL 09/20/2022 3:01 AM [facility] Alkaline Phosphatase 80 35 - 104 U/L 09/20/2022 3:01 AM [facility] AST 26 10 - 35 U/L 09/20/2022 3:01 AM [facility] ALT 32 10 - 35 U/L 09/20/2022 3:01 AM [facility] Protein Total 7.0 6.4 - 8.3 g/dL 09/20/2022 3:01 AM [facility] Albumin 4.3 3.5 - 5.2 g/dL 09/20/2022 3:01 AM [facility] Bilirubin Total <0.2 <=1.2 mg/dL 09/20/2022 3:01 AM [facility] GFR Estimate >90 >60 mL/min/1.7 3m2 09/20/2022 3:01 AM [facility] Comment:eGFR calculated 2020 CKD-EPI equation. Blood BLOOD SPECIMEN / Unknown Venipuncture / Unknown 09/20/2022 2:11 AM CDT 09/20/2022 2:17 AM CDT Zurdo [place] MD LAB - BLOOD ORDER CHERYL Final Result [facility] [address] Lab (1st floor, no room number) [place] [address], [facility] [phone] * (ABNORMAL) Lipid panel (10/27/2016 8:44 AM CDT) Cholesterol 163 <200 mg/dL [facility] Triglycerides 118 <150 mg/dL [facility] HDL Cholesterol 35(L) >49 mg/dL [facility] LDL Cholesterol Calculated 104(H) <100 mg/dL [facility] Comment: Above desirable: 100-129 mg/dl Borderline High: 130-159 mg/dL High: 160-189 mg/dL Very high: >189 mg/dl Non HDL Cholesterol 128 <130 mg/dL [facility] Blood specimen (specimen) 10/27/2016 8:44 AM CDT 10/27/2016 8:54 AM CDT us Augustina Ward APRN ELECTRONIC MASKING SYSTEM OPERATOR LAB - BLOOD ORDERABLE S Final Result Performing Organization Address [facility] Co de Phone Number [facility] [address] [place] [address] from Last 3 Months or Most Recently Relevant to Health Maintenance Insurance [facility] CHOICE [facility] CHOICE [facility] CHO[facility] Advance Directives For more information, please contact: [phone] * Full Code (Latest Code Status on File) Date Activated Date Inactivated Comments 04/22/2017 9:01 PM 04/30/2017 5:05 PM * Full Code Date Activated Date Inactivated Comments 10/26/2016 7:28 PM 11/02/2016 10:57 PM Care Teams Traffic Expert Relationship Specialty Start Date End Date Angel Pérez MD PCP - General Family Medicine 09/20/22
--- NOTE | 2025-05-20 08:13 | CRLHL7_ITS ---
For Patients: As a result of the Century Cures Act, medical imaging exams and procedure reports are released immediately into your electronic medical record. You may view this report before your referring provider. If you have questions, please contact your health care provider. INDICATION: Right upper quadrant pain COMPARISON: 12/29/2024 TECHNIQUE: Angel-scale and color Doppler ultrasound of the right upper quadrant. FINDINGS: Pancreas: Largely obscured by bowel gas but normal where seen. Liver: Diffusely increased hepatic echogenicity and normal echotexture. Difficult to penetrate the liver. No discrete mass identified. The liver is enlarged. The surface does not appear nodular or cirrhotic. Suboptimal assessment of the portal vein due to body habitus and depth. Duplex Doppler signals are normal. Gallbladder and bile ducts: The gallbladder is distended. The gallbladder wall thickness is 4 millimeters. Positive sonographic Almanza`s sign. No definitive pericholecystic fluid. There is some sludge within the gallbladder. No calcified stone is able to be identified. No intrahepatic delete biliary ductal dilatation. The common bile duct measures 9 mm. No choledocholithiasis seen but the distal bile duct is partially obscured by bowel gas. RIGHT Kidney: Renal length: 12.9 cm No cyst or mass definitively seen. No urinary tract dilatation. Abdominal aorta: Poorly visualized due to bowel gas and body habitus. Ascites: None in the right upper quadrant. IMPRESSION: 1. Technically difficult exam due to body habitus and bowel gas. 2. Cholecystitis. There is sludge in the gallbladder but no shadowing stone is able to be identified sonographically, although one was seen on the comparison CT. 3. Dilated common bile duct up to 9 millimeters. No choledocholithiasis seen. 4. Enlarged fatty liver. Dictated by Elizabet Grande MD @ 05/20/2025 9:20:29 AM (Electronically Signed)
--- NOTE | 2025-05-20 08:15 | ED_ITS ---
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 Radiates through to her back in the right upper side. She still has her gallbladder, she has had chronic abdominal pain but the this seems different in the tired her abdomen and radiates through to her back. Started yesterday, it has been on and off, she had difficulty sleeping. With the burning. She tried some Pepto-Bismol that did not help at all. Presents to ER for evaluation. She has had some nausea and vomiting. She has had no fever. No chest pain, no shortness of breath. No leg swelling or edema. Her medical history is reviewed and shows some mental health disorders such as bipolar personality, sleep apnea, anxiety, depression anxiety. Also listed in her medical chart is a history of intentional self-harm. Related Data Previous Rx's ?Medication ?Instructions ?Recorded cetirizine 10 mg tablet (Zyrtec) 10 mg PO QDAY PRN all ergy symptoms 12/06/23 #90 tabs iron,carbonyl 65 mg-vitamin C 125 1 tab PO BID #60 tab s 03/14/24 mg tablet,delayed release (Vitron-C) cholecalciferol (vitamin D3) 125 125 mcg PO QDAY #90 c aps 10/29/24 mcg (5,000 unit) capsule celecoxib 200 mg capsule (Celebrex) 200 mg PO QDAY #90 caps 10/31/24 duloxetine 30 mg capsule,delayed 30 mg PO QDAY #90 cap s 10/31/24 release (Cymbalta) pantoprazole 20 mg tablet,delayed 20 mg PO DAILY #90 t abs 10/31/24 release (Protonix) cyclobenzaprine 10 mg tablet 10 mg PO TID PRN muscle s pasm #30 12/29/24 tabs gabapentin 300 mg capsule 300 mg PO TID #90 caps 12/29 lorazepam 0.5 mg tablet 0.5 mg PO BID PRN anxiety #3 0 tabs 12/29/24 ondansetron 4 mg disintegrating 4 mg PO Q8H #10 tabs 0 12/29/24 tablet tramadol 50 mg tablet 50 mg PO BID PRN pain #30 ta bs 04/10/25 Allergies Allergy/AdvReac Type Severity Reaction Status Date / Time No Known Drug Allergies Allergy Verified 12/29/24 14:03 Review of Systems Status of ROS: Reports: 6 or more systems reviewed and unremarkable except as noted in History and below [facility] Medical History Lumbar back pain with radiculopathy affecting left lower extremity ?M54.16 - Radiculopathy, lumbar region (ICD-10) Depression with anxiety ?F41.8 - Other specified anxiety disorders (ICD-10) Allergic rhinitis ?J30.9 - Allergic rhinitis, unspecified (ICD-10) Bronchitis ?J40 - Bronchitis, not specified as acute or chronic (ICD-10) Travelers' diarrhea ?A09 - Infectious gastroenteritis and colitis, unspecified (ICD-10) Wheezing (~03/26/24) ?R06.2 - Wheezing (ICD-10) Sinus congestion ?R09.81 - Nasal congestion (ICD-10) Anemia ?D64.9 - Anemia, unspecified (ICD-10) Post-traumatic stress ?F43.10 - Post-traumatic stress disorder, unspecified (ICD-10) History of intentional self-harm Passive suicidal ideations ?R45.851 - Suicidal ideations (ICD-10) Vitamin D deficiency ?E55.9 - Vitamin D deficiency, unspecified (ICD-10) Medication management ?Z79.899 - Other termite helper (current) drug therapy (ICD-10) Chronic left lower quadrant pain ?R10.32 - Left lower quadrant pain (ICD-10) ?G89.29 - Other chronic pain (ICD-10) Adverse effect of vaccine ?T50.Z95A - Adverse effect of other vaccines and biological substances, initial encounter (ICD-10) H/O gestational diabetes mellitus, not currently ?Z86.32 - Personal history of gestational diabetes (ICD-10) Vaginal delivery ?O80 - Encounter for full-term uncomplicated delivery (ICD-10) Labyrinthitis ?H83.09 - Labyrinthitis, unspecified ear (ICD-10) History of suicide attempt (2016) ?Z91.51 - Personal history of suicidal behavior (ICD-10) Surgical History History of bilateral ligation of fallopian tubes ?Z98.51 - Tubal ligation status (ICD-10) Family History Maternal Grandmother Cardiovascular disease Diabetes Mother Diabetes Social History Narrative: Cis-gender, heterosexual woman Relationship status: . 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 Illicit/recreational drugs: No Safety concerns at home or work: No Dietary restriction(s): No Exercise: No. Smoking Status: Never smoker How often do you have a drink containing alcohol: never AUDIT-C Alcohol total score: 0 Non-prescribed substance use: denies use Caffeine: Yes (1 cup coffee) Are you using contraception or practicing any form of control: No Exam Narrative: Exam Narrative: Objective: Patient's vital signs are within normal limits, afebrile Alert orient x3, does not appear in marked distress HEENT is unremarkable neck is supple heart rhythm regular without murmur Abdomen obese benign nontender except in the right upper quadrant she has some mild tenderness in the epigastric mild tenderness. There is no rebound or peritonitis. No palpable masses. Extremities are no edema Neurologic nonfocal upper lower extremities. Good peripheral perfusion noted. Const: Vital Signs, click to edit/add: Vital Signs - 24 hr 05/20/25 07:18 05/20/25 08:13 05/20/25 11:20 Temperature 97.4 F L Pulse Rate 90 Pulse Rate [Pulse Oximeter] 86 Respiratory Rate 18 Blood Pressure Blood Pressure [Ri ght Upper Arm] 129/84 Pulse Oximetry 94 98 93 Oxygen Delivery Me thod Room Air 05/20/25 11:22 05/20/25 11:30 Temperature Pulse Rate 69 68 Pulse Rate [Pulse Oximeter] Respiratory Rate Blood Pressure 105/55 L Blood Pressure [Ri ght Upper Arm] Pulse Oximetry 93 93 Oxygen Delivery Me thod Course Vital Signs Vital signs: Initial Vital Signs Temperature 97.4 F L 05/20/25 07:18 Temperature Source Temporal Artery Scan 12/03/25 07:18 Pulse Rate 86 05/20/25 07:18 Respiratory Rate 18 05/20/25 07:18 Blood Pressure 129/84 05/20/25 07:18 Blood Pressure Mean 99 05/20/25 07:18 Blood Pressure Position Sitting 05/20/25 07:18 Pulse Oximetry 94 05/20/25 07:18 Oxygen Delivery Method Room Air 05/20/25 07:18 Vital Signs Temperature 97.4 F L 05/20/25 07:18 Pulse Rate 86 05/20/25 07:18 Respiratory Rate 18 05/20/25 07:18 Blood Pressure 129/84 05/20/25 07:18 Pulse Oximetry 94 05/20/25 07:18 Oxygen Delivery Method Room Air 05/20/25 07:18 Temperature 97.4 F L 05/20/25 07:18 Pulse Rate 68 05/20/25 11:30 Respiratory Rate 18 05/20/25 07:18 Blood Pressure 105/55 L 05/20/25 11:22 Pulse Oximetry 93 05/20/25 11:30 Oxygen Delivery Method Room Air 05/20/25 07:18 Medications Administered Medications: Discontinued Medications Generic Name Dose Route Start Last Admin Trade Name Freq PRN Reason Stop Dose Admin Hydromorphone HCl 1 mg 05/20/25 09:08 05/20/25 09:12 Hydromorphone 0.5 Mg/0.5 Ml Inj IVP 05/20/25 09:09 1 mg ONCE ONE Administration Hydromorphone HCl 0.5 mg 05/20/25 09:50 05/20/25 10:51 Hydromorphone 0.5 Mg/0.5 Ml Inj IVP 05/20/25 09:51 0.5 mg ONCE ONE Administration Sodium Chloride 1,000 mls @ 6,000 mls/hr 05/20/25 08:15 05/20/25 11:07 0.9 % Sodium Chloride 1000 Ml IV 05/20/25 08:24 Infused .Q10M KYLE Infusion Morphine Sulfate 2 mg 05/20/25 08:30 05/20/25 08:52 Morphine 2 Mg/Ml Inj IVP 05/20/25 08:31 2 mg ONCE ONE Administration Ondansetron HCl 4 mg 05/20/25 08:13 05/20/25 08:52 Ondansetron 2 Mg/Ml Inj IVP 05/20/25 08:14 4 mg ONCE ONE Administration Pantoprazole Sodium 40 mg 05/20/25 08:13 05/20/25 08:52 Pantoprazole Sodium 40 Mg Inj IVP 05/20/25 08:14 40 mg ONCE ONE Administration Medical Decision Making MDM Narrative Medical decision making narrative: 40-year-old female with right upper quadrant pain epigastric pain radiating through to the back since yesterday on and off. Seems a little bit worse with food. Patient had a normal CT scan of the abdomen pelvis in December of 2024. At this point this seems more consistent with a biliary colic. Would check an ultrasound of right upper quadrant, laboratory studies, IV fluid, IV Zofran and Protonix. Certainly could be peptic ulcer disease, or duodenitis. I think at this point I would be reasonable to check a ultrasound, labs, IV fluid and pain control. Disposition pending findings. Patient was comfortable this. She does have proton pump inhibitor listed on her medications as well as tramadol. Addendum 9:30 a.m.: Patient has relatively reassuring labs, she does have biliary sludge under ultrasound and thickened gallbladder wall, she has got is mildly dilated common duct at about 8-9 mm. No obvious stone. Her alk-phos is normal. Her bilirubin is normal. Discussed with Who is our surgeon on-call and she will evaluate the case and determined status and treatment options. Addendum 9:42 a.m.: The patient has biliary sludge and Radiology reads her ultrasound is showing cholecystitis. Dr. Boston has reviewed the case and recommends proceeding to surgery. She will consult on the patient. Patient will be kept NPO. Plan is for surgery sometime around noon. Lab Data Labs: Lab Results 05/20/25 05/20/25 Range/Units 08:14 08:43 WBC 10.03 (4.50-11.00) K/uL RBC 4.30 (4.00-5.20) m/uL Hgb 11.7 L (12.0-16.0) gm/dL Hct 36.4 (33.0-51.0) % MCV 85 (80-100) fL MCH 27 (26-34) pg MCHC 32 (32-36) gm/dL RDW Coeff of Michelle 13.2 (11.5-15.5) % Plt Count 366 (140-440) K/uL Neut % (Auto) 76.1 H (42.0-72.0) % Lymph % (Auto) 15.2 L (20-44) % Mccracken % (Auto) 6.7 (0.0-11.0) % Eos % (Auto) 1.3 (0.0-7.0) % Baso % (Auto) 0.5 (0.0-3.0) % Neut # (Auto) 7.60 H (1.7-7.0) K/uL Lymph # (Auto) 1.50 (0.90-2.90) K/uL Mccracken # (Auto) 0.70 (0.00-0.90) K/UL Eos # (Auto) 0.13 (0.00-0.50) K/uL Baso # (Auto) 0.05 (0.00-0.30) K/uL Abs Immat Gran (auto) 0.02 (0.00-0.30) K/uL Imm/Tot Granulo (auto) 0.2 % Sodium 135 (135-149) mmol/L Potassium 4.1 (3.6-5.1) mmol/L Chloride 100 (96-114) mmol/L Carbon Dioxide 23 (20-32) mmol/L Anion Gap 12 (7-15) mEq/L BUN 15 (5-24) mg/dL Creatinine 0.4 L (0.5-1.5) mg/dL Estimated Creat Clear 144.91 Estimated GFR 127 ml/min Glucose 126 H (60-115) mg/dL Lactate 1.1 (0.5-1.9) mmol/L Calcium 8.6 (8.4-10.6) mg/dL Total Bilirubin 0.2 (0.1-1.5) mg/dL Direct Bilirubin 0.1 (0.0-0.5) mg/dL AST 22 (12-35) U/L ALT 26 (4-35) U/L Alkaline Phosphatase 66 (40-150) U/L POC Troponin I High Sensi 2.8 L (2.9-13.0) pg/mL C-Reactive Protein 1.7 H (0.5-1.0) mg/dL Total Protein 6.9 (6.0-8.3) g/dL Albumin 4.1 (3.3-5.0) g/dL Amylase 118 H (18-89) U/L Lipase 70 (23-300) U/L HCG, Qual Negative (Negative) Discharge Plan Discharge Clinical Impression: Chronic abdominal pain, Abdominal pain, Acute cholecystitis Patient Disposition: XFER to OR Follow Up/Referrals: Angel Pérez MD [Primary Care Provider, [facility]]
[2025-05-20 08:51] LABS: Lactate* 1.1 mmol/L (0.5-1.9)
[2025-05-20 08:52] LABS: Hematocrit* 36.4 % (33.0-51.0); Hemoglobin* 11.7 gm/dL (12.0-16.0); Immature Granulocytes Abs Auto 0.02 K/uL (0.00-0.30); Immature Granulocytes Pct Auto 0.2 %; Mean Corpuscular HGB Conc 32 gm/dL (32-36); Mean Corpuscular Hemoglobin 27 pg (26-34); Mean Corpuscular Volume 85 fL (80-100); RDW Coefficient of Variation % 13.2 % (11.5-15.5); Red Blood Count* 4.30 m/uL (4.00-5.20); White Blood Count* 10.03 K/uL (4.50-11.00)
[2025-05-20] MEDS: PANTOPRAZOLE SODIUM 40 MG INJ IVP (08:52)
[2025-05-20] MEDS: ONDANSETRON 2 MG/ML inj 4 MG IVP ×2 (08:52→15:40)
[2025-05-20 09:01] LABS: Lymphocytes Absolute Auto 1.50 K/uL (0.90-2.90); Slide Review Reflex No
[2025-05-20 09:09] LABS: Albumin* 4.1 g/dL (3.3-5.0); Chloride* 100 mmol/L (96-114)
[2025-05-20 09:10] LABS: Potassium* 4.1 mmol/L (3.6-5.1); Sodium* 135 mmol/L (135-149)
[2025-05-20 09:12] LABS: Blood Urea Nitrogen* 15 mg/dL (5-24); Creatinine* 0.4 mg/dL (0.5-1.5); Est. Creatinine Clearance* 144.91; Estimated Glomerular Filt Rate 127 ml/min
[2025-05-20 09:13] LABS: Alanine Aminotransferase* 26 U/L (4-35); Alkaline Phosphatase* 66 U/L (40-150); Anion Gap 12 mEq/L (7-15); Aspartate Amino Transferase* 22 U/L (12-35); Bilirubin Direct* 0.1 mg/dL (0.0-0.5); Bilirubin Total* 0.2 mg/dL (0.1-1.5); Calcium* 8.6 mg/dL (8.4-10.6); Carbon Dioxide* 23 mmol/L (20-32); Glucose* 126 mg/dL (60-115); HCG Qualitative Serum* Negative (Negative); Total Protein* 6.9 g/dL (6.0-8.3)
[2025-05-20] MEDS: LACTATED RINGERS 1000 ML 1,000 ML 100 ML IV ×2 (12:25→14:30)
--- NOTE | 2025-05-20 12:46 | P.GSHP_ITS ---
History of Present Illness History of Present Illness Date Seen: 05/20/25 Chief complaint: pain in abdomen Narrative: Shahana Hwang is a 40 year old female who presented to the emergency department with ongoing, severe upper abdominal pain. Yesterday she had a big meal of hemostasis for dinner. Starting around 7:00 p.m. she started to have a burning sensation in her upper abdomen. This developed into a more intense pain with radiation to her back. She did take some Tylenol and Pepto-Bismol, with no improvement. She was able to work a shift until 10:00 p.m.. At home she was unable to rest because of the pain. She also developed some nausea and vomiting throughout the night. She has never had pain like this before. She does suffer from chronic lower abdominal pain, which has been ongoing for several years. Her surgical history includes tubal ligation and diagnostic laparoscopy with bilateral salpingectomy. 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 She has 4 kids ages 25, 23, 14 an 11 years old. and her is on his way to the [employer] Review of Systems Status of ROS: Reports: 10 or more systems reviewed and unremarkable except as noted in History and below [facility] Medical History Lumbar back pain with radiculopathy affecting left lower extremity ?M54.16 - Radiculopathy, lumbar region (ICD-10) Depression with anxiety ?F41.8 - Other specified anxiety disorders (ICD-10) Allergic rhinitis ?J30.9 - Allergic rhinitis, unspecified (ICD-10) Bronchitis ?J40 - Bronchitis, not specified as acute or chronic (ICD-10) Travelers' diarrhea ?A09 - Infectious gastroenteritis and colitis, unspecified (ICD-10) Wheezing (~03/26/24) ?R06.2 - Wheezing (ICD-10) Sinus congestion ?R09.81 - Nasal congestion (ICD-10) Anemia ?D64.9 - Anemia, unspecified (ICD-10) Post-traumatic stress ?F43.10 - Post-traumatic stress disorder, unspecified (ICD-10) History of intentional self-harm Passive suicidal ideations ?R45.851 - Suicidal ideations (ICD-10) Vitamin D deficiency ?E55.9 - Vitamin D deficiency, unspecified (ICD-10) Medication management ?Z79.899 - Other longterm (current) drug therapy (ICD-10) Chronic left lower quadrant pain ?R10.32 - Left lower quadrant pain (ICD-10) ?G89.29 - Other chronic pain (ICD-10) Adverse effect of vaccine ?T50.Z95A - Adverse effect of other vaccines and biological substances, initial encounter (ICD-10) H/O gestational diabetes mellitus, not currently ?Z86.32 - Personal history of gestational diabetes (ICD-10) Vaginal delivery ?O80 - Encounter for full-term uncomplicated delivery (ICD-10) Labyrinthitis ?H83.09 - Labyrinthitis, unspecified ear (ICD-10) History of suicide attempt (2017) ?Z91.51 - Personal history of suicidal behavior (ICD-10) Surgical History History of bilateral ligation of fallopian tubes ?Z98.51 - Tubal ligation status (ICD-10) Family History Maternal Grandmother Cardiovascular disease Diabetes Mother Diabetes Social History Narrative: Cis-gender, heterosexual woman Relationship status: . 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 Illicit/recreational drugs: No Safety concerns at home or work: No Dietary restriction(s): No Exercise: No. Smoking Status: Never smoker How often do you have a drink containing alcohol: never AUDIT-C Alcohol total score: 0 Non-prescribed substance use: denies use Caffeine: Yes (1 cup coffee) Are you using contraception or practicing any form of control: No service: No Meds Home Medications and Allergies Home Medications ?Medication ?Instructions ?Recorded ?Confirmed ?Type cetirizine 10 mg tablet (Zyrtec) 10 mg PO QDAY PRN all ergy symptoms 12/06/23 05/20/25 Rx #90 tabs iron,carbonyl 65 mg-vitamin C 125 1 tab PO BID #60 tab s 03/14/24 05/20/25 Rx mg tablet,delayed release (Vitron-C) cholecalciferol (vitamin D3) 125 125 mcg PO QDAY #90 c aps 10/29/24 05/20/25 Rx mcg (5,000 unit) capsule celecoxib 200 mg capsule (Celebrex) 200 mg PO QDAY #90 caps 10/31/24 05/20/25 Rx duloxetine 30 mg capsule,delayed 30 mg PO QDAY #90 cap s 10/31/24 05/20/25 Rx release (Cymbalta) pantoprazole 20 mg tablet,delayed 20 mg PO DAILY #90 t abs 10/31/24 05/20/25 Rx release (Protonix) cyclobenzaprine 10 mg tablet 10 mg PO TID PRN muscle s pasm #30 12/29/24 05/20/25 Rx tabs gabapentin 300 mg capsule 300 mg PO TID #90 caps 12/2905/20/25 Rx lorazepam 0.5 mg tablet 0.5 mg PO BID PRN anxiety #3 0 tabs 12/29/24 05/20/25 Rx ondansetron 4 mg disintegrating 4 mg PO Q8H #10 tabs 0 12/29/24 05/20/25 Rx tablet tramadol 50 mg tablet 50 mg PO BID PRN pain #30 ta bs 04/10/25 05/20/25 Rx Allergies Allergy/AdvReac Type Severity Reaction Status Date / Time No Known Drug Allergies Allergy Verified 05/20/25 12:39 Exam Narrative: Exam Narrative: General: Alert and oriented, morbid obesity Respiratory: Equal breath rise bilaterally, maintained on room air CV: Well perfused Abdomen: Soft, tender to palpation epigastric and right upper quadrant, positive Almanza sign. Const: Vital Signs, click to edit/add: Vital Signs - 24 hr 05/20/25 07:18 05/20/25 08:13 05/20/25 11:20 Temperature 97.4 F L Pulse Rate 90 Pulse Rate [Pulse Oximeter] 86 Respiratory Rate 18 Blood Pressure Blood Pressure [Ri ght Upper Arm] 129/84 Pulse Oximetry 94 98 93 Oxygen Delivery Me thod Room Air 05/20/25 11:22 05/20/25 11:30 Temperature Pulse Rate 69 68 Pulse Rate [Pulse Oximeter] Respiratory Rate Blood Pressure 105/55 L Blood Pressure [Ri ght Upper Arm] Pulse Oximetry 93 93 Oxygen Delivery Me thod Results Results Labs: No leukocytosis, LFTs within normal limits Abdominal ultrasound report/results: report reviewed and image reviewed Additional studies: Abdominal ultrasound report: MPRESSION: 1. Technically difficult exam due to body habitus and bowel gas. 2. Cholecystitis. There is sludge in the gallbladder but no shadowing stone is able to be identified sonographically, although one was seen on the comparison CT. 3. Dilated common bile duct up to 9 millimeters. No choledocholithiasis seen. 4. Enlarged fatty liver. Progress Note:A&P Assessment and plan (1) Acute cholecystitis: Status: Acute Assessment and Plan: Patient is a 40-year-old female with clinical workup and symptoms concerning for acute cholecystitis. I had a detailed conversation with the patient regarding the diagnosis of acute cholecystitis. We discussed the treatment options including observation with diet modification and laparoscopic cholecystectomy. We discussed the risks of surgery (including but not limited to) the risks of bleeding, infection, injury to other structures in the abdomen including bile duct injury, bile leak and conversion to an open operation. We discussed the possibility that the patient's pain not improve with surgery. We discussed the possibility of permanent post-operative diarrhea that may require medical management. Additionally, the conceivably of complications requiring additional surgery or further hospitalization were also discussed including the risks of PA, respira tory failure, stroke and blood clots. The patient voiced an understanding of our conversation, had the opportunity to ask questions, agreed to accept the risks of surgery and asked that we proceed with surgery. Plan -OR for laparoscopic cholecystectomy
[2025-05-20] MEDS: PIPERACILLIN/TAZOBACTAM 3.375 GM INJ IVPB (13:00)
--- NOTE | 2025-05-20 13:02 | P.ANES_ITS ---
Anesthesia Charges Start Date/Time Anesthesia Start Date: 05/20/25 Anesthesia Start Time: 12:43 Stop Date/Time Anesthesia Stop Date: 05/20/25 Anesthesia Stop Time: 14:53 Summary Emergency: [facility] Coding CPT Codes CPT Codes: ANESTH SURG UPPER ABDOMEN - 40090 ([id number]) P3 - PATIENT W/SEVERE SYS DISEASE, QK - MOTOR VEHICLE REPRESENTATIVE 2-4 CNCRNT ANES PROC, QX - INSPECTOR BARREL SVC W/ MD MED DIRECTION Additional Codes: Summary - Emergency: [facility] ([id number])
--- NOTE | 2025-05-20 13:02 | W.ANESCHARGE ---
Anesthesia Charges Start Date/Time Anesthesia Start Date: 05/20/25 Anesthesia Start Time: 12:43 Stop Date/Time Anesthesia Stop Date: 05/20/25 Anesthesia Stop Time: 14:53 Summary Emergency: [facility] Coding CPT Codes CPT Codes: ANESTH SURG UPPER ABDOMEN - 96498 ([id number]) P3 - PATIENT W/SEVERE SYS DISEASE, QK - STONER OUT 2-4 CNCRNT ANES PROC, QX - METER SHOP SUPERVISOR SVC W/ MD MED DIRECTION Additional Codes: Summary - Emergency: [facility] ([id number])
[2025-05-20] MEDS: BUPIVACAINE 0.5% 30 ML INJECTION (14:32)
--- NOTE | 2025-05-20 14:43 | P.GSOP_ITS ---
Operative Note Date of procedure: 05/20/25 Pre-op diagnosis: Acute cholecystitis Post-op diagnosis: Same, hydrops of gallbladder Type of Procedure: Laparoscopic cholecystectomy Indications: Patient is a 40-year-old female who presented to the emergency department with clinical workup in symptoms consistent with acute cholecystitis. Risks and benefits of operative intervention were discussed at length with the patient. Risks included but was not limited to: Bleeding, infection, risk of damage to surrounding structures, possible need for additional procedures, possible need to convert to an open operation and postoperative complications such as pneumonia, pulmonary emboli or VT. All questions and concerns were addressed with the patient agreeing to proceed. Procedure Description: After discussing the risks and benefits of the procedure, the patient signed informed consent.? The operative site was marked and the patient was brought to the operating room and placed on the operating table in supine position.? Care was taken to pad the patient's pressure points.?? The patient was then intubated by anesthesia.?? The operative site was then prepped and draped in the usual sterile fashion.? A time-out was then performed. Entrance to the abdomen was gained via a 5 mm Visiport in the left upper quadrant. The abdomen was insufflated and briefly surveyed for signs of injury. There was none. An omental adhesion to the anterior abdominal wall was present at the umbilicus, where the patient had a previous surgical incision. An 11 mm umbilical port was placed above this, supraumbilical, as well as 2 working ports along the right costal margin. Patient was then placed in reverse Trendelenburg position with the right side up. The gallbladder fundus was distended and difficult to grasp. The gallbladder was decompressed with removal of 60 mL clear mucus fluid, consistent with hydrops of the gallbladder. This allowed the fundus to be grasped and retracted cephalad. A small amount of dissection was needed to free omental adhesions from the gallbladder. The tissue was very edematous and inflamed. The infundibulum was grasped. A combination of hook cautery and blunt dissection was used to carefully dissect out the cystic duct and artery. A small branch of the artery on the cystic duct was controlled with a single clip proximal and cautery distal. Further dissection was performed until only the artery and cystic duct could clearly be seen entering the gallb ladder without any intervening structures. The gallbladder was dissected off the cystic plate to achieve the critical view. Once this was achieved the cystic duct and artery were each clipped with 2 clips proximally and 1 clip distally and transected with the scissors. The gallbladder was then taken off of the liver bed. A small bleeding artery was controlled with a single 5 mm clip. As the gallbladder was dissected free a large underlying hepatic cyst was visualized and adherent to the posterior wall of the gallbladder. A small hole was created during dissection on the superior aspect of the cyst. A moderate amount of dark serous fluid was evacuated. The gallbladder was then removed completely from the liver bed and placed in the Endo-Catch bag. This was removed from the abdomen through the 11 mm port. The intra abdominal pressure was reduced and the liver bed examined closely for bleeding. A small amount of venous blood was pooled in the cyst cavity, with no evidence of active bleeding. There was a small area of arterial bleeding seen on the edge of the cyst, which was controlled with a single 5 mm clip. Surgicel was placed into the gallbladder fossa. The decision was made to leave a 15 Barb[place] SIMONE drain. This was placed through the port site in the right upper quadrant. The umbilical port fascia was closed with 0 Vicryl via the Bruce-Yuniel. All other ports were removed under direct visualization and CO2 evacuated. The skin was closed with absorbable subcuticular suture. Instrument sponge and needle counts were correct at the end of the case. The patient was then woken and transferred to the PACU in stable condition. Findings: Hydrops of the gallbladder. Hepatic cyst within the gallbladder fossa. Anesthesia: GETA Surgeon: Sosa Boston MD Estimated blood loss (mL): 75 Specimen: Gallbladder Condition: stable Disposition: PACU
--- NOTE | 2025-05-20 14:58 | P.ANES_ITS ---
Anesthesia Charges Start Date/Time Anesthesia Start Date: 05/20/25 Anesthesia Start Time: 12:43 Stop Date/Time Anesthesia Stop Date: 05/20/25 Anesthesia Stop Time: 14:53 Summary Emergency: [facility] Coding CPT Codes CPT Codes: ANESTH SURG UPPER ABDOMEN - 10383 ([id number]) P3 - PATIENT W/SEVERE SYS DISEASE, QK - FAVOR MAKER 2-4 CNCRNT ANES PROC, QX - MEDICAL ESTHETICIAN SVC W/ MD MED DIRECTION Additional Codes: Summary - Emergency: [facility] ([id number])
--- NOTE | 2025-05-20 14:58 | W.ANESCHARGE ---
Anesthesia Charges Start Date/Time Anesthesia Start Date: 05/20/25 Anesthesia Start Time: 12:43 Stop Date/Time Anesthesia Stop Date: 05/20/25 Anesthesia Stop Time: 14:53 Summary Emergency: WALTER Coding CPT Codes CPT Codes: ANESTH SURG UPPER ABDOMEN - 14530 ([id number]) P3 - PATIENT W/SEVERE SYS DISEASE, QK - BUILDINGS AND GROUNDS COORDINATOR 2-4 CNCRNT ANES PROC, QX - KEYPUNCH OPERATOR SVC W/ MD MED DIRECTION Additional Codes: Summary - Emergency: WALTER ([id number])
--- NOTE | 2025-05-20 19:39 | PC.NURSE ---
Shift note [id number] The pt has been alert and oriented x4; denied chest pain and short of breath; Spo2 has been in the 90s 1-2L of oxygen via NC; the pt was weaned to RA for a brief moment but Spo2 started dropping to 89% in RA; 1L of oxygen given with Spo2 back in the 90s. x3 lab sites has been intact with Steri strips. The RUQ SIMONE tube site dressing was soaked with bloody drain; the sponge drain was changed x1; about 20 ml of Bloody drain empted from the SIMONE pouch; the tube was milked x1. The pt was c/o 7-10 abdominal pain; the pain was managed with PRN medication. The pt appeared without any acute distress.
[2025-05-20] MEDS: HYDROCODONE-ACETAMIN 5-325 MG 1 TAB PO (20:21)
[2025-05-21 03:00] VITALS: BP 101/63; PULSE 86; RESP 16; TEMP 36.6; O2SAT 92
[2025-05-21 05:51] LABS: Appearance Urine Clear (Clear)
[2025-05-21] MEDS: HYDROCODONE-ACETAMIN 5-325 MG 1 TAB PO ×3 (05:52→15:13)
--- NOTE | 2025-05-21 07:14 | PC.NURSE ---
The patient rates her pain at a moderate level throughout the night despite pain medication administration. I also encouraged the patient to ambulate anbd brace a pillow for support. The patient only was up to the BR throughout the night. L side SIMONE, draining ok. Advanced to a soft diet last evening for dinner, denies nausea. Call light within reach and will make her needs known. Steri strips CDI. The patient reported UTI symptoms, was contacted and a UA was collected. Daina DELGADO BSN
[2025-05-21 07:16] LABS: Hematocrit* 32.9 % (33.0-51.0); Hemoglobin* 10.4 gm/dL (12.0-16.0); Immature Granulocytes Pct Auto 0.2 %; Lymphocytes Absolute Auto 2.00 K/uL (0.90-2.90); Mean Corpuscular HGB Conc 32 gm/dL (32-36); Mean Corpuscular Hemoglobin 27 pg (26-34); Mean Corpuscular Volume 86 fL (80-100); RDW Coefficient of Variation % 13.3 % (11.5-15.5); Red Blood Count* 3.83 m/uL (4.00-5.20); White Blood Count* 12.04 K/uL (4.50-11.00)
[2025-05-21 07:28] LABS: Immature Granulocytes Abs Auto 0.00 K/uL (0.00-0.30); Slide Review Reflex No
[2025-05-21 07:29] LABS: Chloride* 100 mmol/L (96-114); Potassium* 3.8 mmol/L (3.6-5.1); Sodium* 135 mmol/L (135-149)
[2025-05-21 07:32] LABS: Anion Gap 10 mEq/L (7-15); Blood Urea Nitrogen* 9 mg/dL (5-24); Calcium* 8.3 mg/dL (8.4-10.6); Carbon Dioxide* 25 mmol/L (20-32); Creatinine* 0.5 mg/dL (0.5-1.5); Est. Creatinine Clearance* 115.93; Estimated Glomerular Filt Rate 120 ml/min; Glucose* 117 mg/dL (60-115)
[2025-05-21 07:47] VITALS: BP 113/70; PULSE 88; RESP 18; TEMP 37; O2SAT 95
[2025-05-21] MEDS: GABAPENTIN 300 MG CAPSULE PO (07:48)
[2025-05-21] MEDS: CELECOXIB 200 MG CAPSULE PO (07:48)
--- NOTE | 2025-05-21 09:52 | PM.DS1 ---
DS: Providers Provider Date Seen: 05/21/25 Primary care physician: Angel Pérez MD Attending Physician on discharge: Sosa Boston MD DS: Summary Hospital Course Hospital Course: Patient was admitted to the emergency department with clinical workup and symptoms suspicious for acute cholecystitis. She was taken to the operating room for laparoscopic cholecystectomy. Evidence of hydrops of the gallbladder intraoperatively. She also had a large hepatic cyst on the posterior wall of the gallbladder. A 15 [place] SIMONE drain was left in place in the right upper quadrant. Minimal output overnight. On postop day 1 the drain was able to be removed. Repeat labs shows mild leukocytosis (12), suspect secondary to recent operation. Hemoglobin 10.4 with no concerns for ongoing bleeding. She was complaining of pain with urination. A UA was obtained with no concern for urinary tract infection. No need for additional antibiotics. At the time of discharge patient was tolerating a regular diet, ambulating without difficulty and pain was well controlled on p.o. pain medicine. Time Spent with Patient Time attestation: Total time spent providing and/or coordinating discharge services: Exam Narrative: Exam Narrative: General: Alert and oriented, no acute distress Respiratory: Equal breath rise bilaterally, maintained on room air CV: Well perfused Abdomen: Soft, appropriately tender over incisions. Right upper quadrant drain with minimal dark serous fluid. Drain removed without difficulty. Steri-Strips clean/dry/intact Const: Vital Signs, click to edit/add: Vital Signs - 24 hr 05/20/25 11:20 05/20/25 11:22 05/20/25 11:30 Temperature Pulse Rate 90 69 68 Pulse Rate [Left P ulse Oximeter] Respiratory Rate Blood Pressure 105/55 L Blood Pressure [Ri ght Arm] Pulse Oximetry 93 93 93 Oxygen Delivery Me thod Oxygen Flow Rate 05/20/25 14:50 05/20/25 14:55 05/20/25 15:00 Temperature 99.8 F H Pulse Rate 80 73 68 Pulse Rate [Left P ulse Oximeter] Respiratory Rate 18 19 16 Blood Pressure 129/81 125/77 128/75 Blood Pressure [Ri ght Arm] Pulse Oximetry 88 95 90 Oxygen Delivery Me thod Nasal Cannula Oxygen Flow Rate 3 05/20/25 15:05 05/20/25 15:10 05/20/25 15:15 Temperature Pulse Rate 75 88 79 Pulse Rate [Left P ulse Oximeter] Respiratory Rate 16 16 16 Blood Pressure 124/73 127/80 129/73 Blood Pressure [Ri ght Arm] Pulse Oximetry 95 88 97 Oxygen Delivery Me thod Room Air Nasal Cannula Nasal Cannula Oxygen Flow Rate 3 3 05/20/25 15:20 05/20/25 15:25 05/20/25 15:30 Temperature Pulse Rate 81 76 70 Pulse Rate [Left P ulse Oximeter] Respiratory Rate 16 16 14 Blood Pressure 132/82 132/80 129/85 Blood Pressure [Ri ght Arm] Pulse Oximetry 98 97 98 Oxygen Delivery Me thod Nasal Cannula Nasal Cannula Nasal Cannula Oxygen Flow Rate 3 3 3 05/20/25 15:35 05/20/25 15:40 05/20/25 15:45 Temperature 97.9 F Pulse Rate 75 65 71 Pulse Rate [Left P ulse Oximeter] Respiratory Rate 14 14 14 Blood Pressure 128/76 127/78 126/74 Blood Pressure [Ri ght Arm] Pulse Oximetry 98 98 98 Oxygen Delivery Me thod Nasal Cannula Nasal Cannula Nasal Cannula Oxygen Flow Rate 3 3 3 05/20/25 15:50 05/20/25 15:55 05/20/25 16:00 Temperature Pulse Rate 79 86 73 Pulse Rate [Left P ulse Oximeter] Respiratory Rate 14 14 14 Blood Pressure 122/74 128/85 128/77 Blood Pressure [Ri ght Arm] Pulse Oximetry 98 98 98 Oxygen Delivery Me thod Nasal Cannula Nasal Cannula Nasal Cannula Oxygen Flow Rate 3 3 3 05/20/25 16:05 05/20/25 16:10 05/20/25 16:25 Temperature 97.5 F L Pulse Rate 72 76 Pulse Rate [Left P ulse Oximeter] Respiratory Rate 14 14 14 Blood Pressure 115/70 125/72 Blood Pressure [Ri ght Arm] 133/81 Pulse Oximetry 96 99 98 Oxygen Delivery Me thod Nasal Cannula Nasal Cannula Nasal Cannula Oxygen Flow Rate 3 3 2 05/20/25 16:45 05/20/25 17:00 05/20/25 17:15 Temperature Pulse Rate Pulse Rate [Left P ulse Oximeter] 74 91 Respiratory Rate 14 16 16 Blood Pressure Blood Pressure [Ri ght Arm] 115/65 117/82 112/69 Pulse Oximetry 98 97 97 Oxygen Delivery Me thod Nasal Cannula Nasal Cannula Oxygen Flow Rate 1 2 1 05/20/25 17:41 05/20/25 18:00 12/03/25 19:11 Temperature 97.5 F L 99.0 F Pulse Rate Pulse Rate [Left P ulse Oximeter] 101 H Respiratory Rate 14 16 18 Blood Pressure Blood Pressure [Ri ght Arm] 117/82 124/82 114/72 Pulse Oximetry 98 96 94 Oxygen Delivery Me thod Nasal Cannula Room Air Room Air Oxygen Flow Rate 2 05/20/25 20:11 05/20/25 22:00 05/20/25 23:00 Temperature 99.4 F Pulse Rate Pulse Rate [Left P ulse Oximeter] 94 100 Respiratory Rate 18 18 Blood Pressure Blood Pressure [Ri ght Arm] 127/72 129/78 Pulse Oximetry 93 94 94 Oxygen Delivery Me thod Room Air Room Air Room Air Oxygen Flow Rate 05/20/25 23:00 05/21/25 03:00 05/21/25 07:47 Temperature 99.3 F 97.8 F Pulse Rate Pulse Rate [Left P ulse Oximeter] 95 86 Respiratory Rate 18 16 18 Blood Pressure Blood Pressure [Ri ght Arm] 123/75 101/63 Pulse Oximetry 93 92 95 Oxygen Delivery Me thod Room Air Room Air Room Air Oxygen Flow Rate 05/21/25 07:47 Temperature 98.6 F Pulse Rate Pulse Rate [Left P ulse Oximeter] 88 Respiratory Rate 18 Blood Pressure Blood Pressure [Ri ght Arm] 113/70 Pulse Oximetry 95 Oxygen Delivery Me thod Room Air Oxygen Flow Rate DS: Data Data Completed and Pending Labs on day of discharge: Labs from last 24 hours 05/21/25 05/21/25 05/20/25 06:20 05:30 08:14 WBC 12.04 H RBC 3.83 L Hgb 10.4 L Hct 32.9 L MCV 86 MCH 27 MCHC 32 RDW Coeff of Michelle 13.3 Plt Count 318 Neut % (Auto) 75.3 H Lymph % (Auto) 16.6 L [place] % (Auto) 7.6 Eos % (Auto) 0.1 Baso % (Auto) 0.2 Neut # (Auto) 9.10 H Lymph # (Auto) 2.00 [place] # (Auto) 0.90 Eos # (Auto) 0.00 Baso # (Auto) 0.00 Abs Immat Gran (auto) 0.00 Imm/Tot Granulo (auto) 0.2 Sodium 135 Potassium 3.8 Chloride 100 Carbon Dioxide 25 Anion Gap 10 BUN 9 Creatinine 0.5 Estimated Creat Clear 115.93 Estimated GFR 120 Glucose 117 H Calcium 8.3 L POC Troponin I High Sens[place] 2.8 L Urine Color Yellow Urine Appearance Clear Urine pH 7.0 Ur Specific [place] 1.020 Urine Protein Negative Urine Glucose (UA) Negative Urine Ketones Negative Urine Blood Trace-intact A Urine Nitrite Negative Urine Bilirubin Negative Urine Urobilinogen 0.2 Ur Leukocyte Esterase Negative Urine RBC 0-2 Urine WBC 0-2 Ur Squamous Epith Cells Few Urine Bacteria Few A Preliminary micro results at discharge 05/21/25 05:30 Urine Culture - Preliminary Urine,Clean Catch Culture in Progress Discharge Plan Discharge Disposition: Home w/ Parent or Adult Discharging Surgeon: Sosa Boston Follow-Up Appointment: 2 week follow up Prescriptions: New hydrocodone-acetaminophen 5-325 mg tablet 1 tab PO Q6H PRN (Reason: pain) Qty: 15 0RF senna 8.6 mg capsule 8.6 mg PO DAILY PRN (Reason: constipation) Qty: 90 0RF Continued cetirizine [Zyrtec] 10 mg tablet 10 mg PO QDAY PRN (Reason: allergy symptoms) Qty: 90 1RF gabapentin 300 mg capsule 300 mg PO TID PRN cholecalciferol (vitamin D3) 125 mcg (5,000 unit) capsule 125 mcg PO QDAY Qty: 90 3RF tramadol 50 mg tablet 50 mg PO BID PRN (Reason: pain) Qty: 30 0RF Activity Level: No strenuous activity Activity Detail: Activity as tolerated. Avoid strenuous activity. No lifting greater than 20 lb for 2 weeks. Discharge Diet: Low Fat/Low Cholesterol Patient Instructions: NH+C Post-Operative Instructions: Laparoscopic Cholecystectomy Additional Instructions: You were prescribed a narcotic pain medication. In addition you may supplement with Tylenol and/or ibuprofen. Be sure to not exceed greater than 4 g of Tylenol in a 24 hour period. While on narcotic pain medicine please take stool softeners. A prescription of stool softeners has been sent to the pharmacy. Stop if having greater than 2 stools per day. You have Steri-Strips dressings in place, allow these to fall off on their own. Change the dressing on your right side daily until the incision is healed. Okay to shower. Do not soak in a bath or swim for 2 weeks. Follow-up with Dr. Boston in 2-3 weeks. Please call if you are experiencing severe pain, nausea, vomiting, difficulty urinating, fever or not had a bowel movement in 4 days after surgery. Follow-up: Angel Pérez MD [Primary Care Provider, Family Practice] Discharge Orders: Discharge Order (Routine); Ordered 05/21/25 Ordered By: Sosa Boston
[2025-05-21 12:45] VITALS: BP 95/54; PULSE 79; RESP 16; TEMP 36.9; O2SAT 97
== END 2025-05-21 18:35 | disposition home or self-care (01) ==
LOC: ED 11:51 → OR 12:29 → MEDSURG 16:32
PROVIDERS: Emergency Provider Family Medicine; PCP Family Medicine; Visit Provider Surgery
PROC: 0FT44ZZ Resection of Gallbladder, Percutaneous Endoscopic Approach (ICD-10-PCS; CPT 47562; principal; 2025-05-20 12:30)
DX: K81.0 Acute cholecystitis (principal); K82.1 Hydrops of gallbladder; R30.0 Dysuria
CPT/HCPCS: 47562; 00790; 36415; 76705; 80048; 80076; 81001; 81003; 82150; 83605; 83690; 84484; 84703; 85025; 86140; 87086; 93005; 94761; 99140; 99284; 99285; A9270; J0330; J0665; J1100; J1171; J2250; J2270; J2405; J2470; J2543; J2704; J2710; J3010; J3490; J7030; J7120